=== PATIENT | male | born 1980 ===

== ENCOUNTER 2023-03-25 02:22 | Day surgery (SDC) | payer OTHER ==
[2023-03-25 15:24] VITALS: BP 154/90
[2023-03-25] MEDS ORDERED: BACL10 PO (16:48)
[2023-03-25] MEDS ORDERED: BISA10S PR (16:48)
[2023-03-25] MEDS ORDERED: Norco 5-325 Ta1 EACH PO (16:49)
[2023-03-25] MEDS ORDERED: FAMO20 PO (16:49)
[2023-03-25] MEDS ORDERED: DULCOLAX400 MG/5 M PO (16:50)
[2023-03-25] MEDS ORDERED: NIFE90ER PO (16:50)
[2023-03-25] MEDS ORDERED: OXYB5 PO (16:51)
[2023-03-25] MEDS ORDERED: SENNA LAXATIVE8.6 MG PO (16:52)
[2023-03-25] MEDS ORDERED: TEMA15 PO (16:53)
== END 2023-03-25 16:18 | disposition home or self-care (01) ==
LOC: ATC 02:22
DX: G82.54 Quadriplegia, C5-C7 incomplete (principal); N31.2 Flaccid neuropathic bladder, not elsewhere classified; K21.9 Gastro-esophageal reflux disease without esophagitis; G47.00 Insomnia, unspecified; Z88.1 Allergy status to other antibiotic agents; Z88.2 Allergy status to sulfonamides; Z87.891 Personal history of nicotine dependence; Z91.040 Latex allergy status; Z93.3 Colostomy status
CPT/HCPCS: 99214; C1751

== ENCOUNTER 2023-03-31 13:27 | Inpatient (IN) | payer OTHER ==
[~2023-03-31] VITALS: Ht 190.5 cm; Wt 81.1 kg
[~2023-03-31 13:27] MED LIST: BACL10 PO; BISA10S PR; DULCOLAX400 MG/5 M PO; FAMO20 PO; NIFE90ER PO; Norco 5-325 Ta1 EACH PO; OXYB5 PO; SENNA LAXATIVE8.6 MG PO; TEMA15 PO
[2023-03-31 14:51] LABS: BASOPHILS ABSOLUTE AUTO 0.07 K/mm3 (0.00-0.23); BASOPHILS PERCENT AUTO 1 % (0-2); EOSINOPHILS ABSOLUTE AUTO 0.04 K/mm3 (0.00-0.68); EOSINOPHILS PERCENT AUTO 0 % (0-6); Hematocrit 45.5 % (37.0-53.0); Hemoglobin 14.9 g/dL (13.5-17.5); IMMATURE GRAN ABSOLUTE AUTO 0.04 K/mm3 (0.00-0.10); IMMATURE GRAN PERCENT AUTO 0 % (0-1); LYMPHOCYTES ABSOLUTE AUTO 0.41 K/mm3 (0.84-5.20); LYMPHOCYTES PERCENT AUTO 3 % (21-46); MONOCYTES ABSOLUTE AUTO 0.54 K/mm3 (0.16-1.47); MONOCYTES PERCENT AUTO 5 % (4-13); Mean Corpuscular HGB 26.9 pg (26.0-34.0); Mean Corpuscular HGB Conc 32.7 g/dL (31.5-36.5); Mean Corpuscular Volume 82 fL (80-100); Mean Platelet Volume 9.5 fL (9.1-12.4); NEUTROPHILS ABSOLUTE AUTO 10.98 K/mm3 (1.96-9.15); NEUTROPHILS PERCENT AUTO 91 % (41-73); Platelet Count 272 K/mm3 (150-400); RDW Coefficient Variation 15.8 % (11.7-14.2); RDW Standard Deviation 47.2 fL (35.1-46.3); Red Blood Cell Count 5.53 M/mm3 (4.30-5.90); White Blood Cell Count 12.08 K/mm3 (4.00-11.30)
[2023-03-31 15:07] LABS: Albumin, Blood 3.5 g/dL (3.4-5.0); Albumin/Globulin Ratio 0.7 (0.8-1.8); Bilirubin, Total 0.5 mg/dL (0.1-1.0); Bun/Creatinine Ratio 39.2 (12.0-20.0); Calcium, Blood 8.7 mg/dL (8.5-10.1); Creatinine, Blood 0.46 mg/dL (0.60-1.20); Globulin, Blood 5.1 g/dL (2.2-4.0); Potassium, Blood 4.3 mmol/L (3.5-5.5); Total Protein, Blood 8.6 g/dL (6.4-8.2)
[2023-03-31 16:26] LABS: Source, Urine Foley catheter
[2023-03-31 16:31] LABS: Appearance, Urine Bloody (Clear); Bilirubin, Urine Neg (Neg); Blood, Urine 5+ (Neg); Color, Urine Red (P-Yellow); Glucose Qualitative, Urine Neg (Neg); Ketones, Urine Neg (Neg); Leukocyte Esterase, Urine 3+ (Neg); Nitrite, Urine Pos (Neg); Protein, Urine 3+ (Neg); Urobilinogen, Urine NORM (Normal)
[2023-03-31 16:53] LABS: Bacteria Many /hpf; Red Blood Cells, Urine TNTC /hpf (0-2); Squamous Epithelial Cells Not Seen /hpf (Few); White Blood Cells, Urine TNTC /hpf (0-5)
[2023-03-31 17:50] LABS: Influenza A, PCR NEGATIVE (NEGATIVE); Influenza B, PCR NEGATIVE (NEGATIVE); Resp Syncytial Virus, PCR NEGATIVE (NEGATIVE); SARS-Cov-2 (COVID-19) PCR, MMC NEGATIVE (NEGATIVE)
[2023-03-31] MEDS ORDERED: PERIDEX15 ML PO (20:52)
[2023-03-31] MEDS ORDERED: Acetaminophen650 M1 PO (20:55)
[2023-03-31 21:35] VITALS: BP 129/78
--- NOTE | 2023-04-01 02:12 | NUR ---
REPORT RECEIVED FROM ER VERIFIED PT A/O X4 VERY PLEASENT, TEMP ELEVATED 101.2, COOLING BLANKET AT BEDSIDE BUT NOT ON BECAUSE SEEMS LIKE FEVER GOING TO BREAK. ADMISSION DONE, PICS TAKEN TO SCROTUM AREA WITH LARGE PRESSURE ULCER AND COVERED WITH MEPLIX. SUPERPUBIC CATH CLAMPED AND LEAKING, VILA DRAINING YELLOW TO RED BLOODY URINE. COLOSTOMY INTACT. BAG HAS NO CLEAR WINDOW SO CANT SEE CONDITION OF OSTOMY, PT STATES ITS FINE. 2200 FEVER BROKE 99.8 PT HUNGRY AND REQUESTING FOOD, ACACIA VERY WELL IS OUT GOING AND OPTIMISTIC EVEN WITH LONG STANDING LALO ISSUES AND POOR PROGNOSIS. BOTH IVS WORKING AND WNL.
[2023-04-01 03:43] VITALS: BP 150/96
[2023-04-01 05:19] LABS: BASOPHILS ABSOLUTE AUTO 0.04 K/mm3 (0.00-0.23); BASOPHILS PERCENT AUTO 0 % (0-2); EOSINOPHILS ABSOLUTE AUTO 0.08 K/mm3 (0.00-0.68); EOSINOPHILS PERCENT AUTO 1 % (0-6); Hematocrit 42.3 % (37.0-53.0); Hemoglobin 13.6 g/dL (13.5-17.5); IMMATURE GRAN ABSOLUTE AUTO 0.05 K/mm3 (0.00-0.10); IMMATURE GRAN PERCENT AUTO 1 % (0-1); LYMPHOCYTES ABSOLUTE AUTO 0.29 K/mm3 (0.84-5.20); LYMPHOCYTES PERCENT AUTO 3 % (21-46); MONOCYTES PERCENT AUTO 5 % (4-13); Mean Corpuscular HGB Conc 32.2 g/dL (31.5-36.5); Mean Corpuscular Volume 84 fL (80-100); Mean Platelet Volume 9.8 fL (9.1-12.4); NEUTROPHILS ABSOLUTE AUTO 9.42 K/mm3 (1.96-9.15); NEUTROPHILS PERCENT AUTO 91 % (41-73); Platelet Count 223 K/mm3 (150-400); RDW Coefficient Variation 15.9 % (11.7-14.2); RDW Standard Deviation 48.5 fL (35.1-46.3); Red Blood Cell Count 5.04 M/mm3 (4.30-5.90); White Blood Cell Count 10.38 K/mm3 (4.00-11.30)
[2023-04-01 06:25] LABS: Albumin, Blood 2.9 g/dL (3.4-5.0); Albumin/Globulin Ratio 0.7 (0.8-1.8); Bilirubin, Total 0.4 mg/dL (0.1-1.0); Bun/Creatinine Ratio 27.4 (12.0-20.0); Calcium, Blood 8.2 mg/dL (8.5-10.1); Creatinine, Blood 0.69 mg/dL (0.60-1.20); Globulin, Blood 4.4 g/dL (2.2-4.0); Potassium, Blood 3.8 mmol/L (3.5-5.5); Total Protein, Blood 7.3 g/dL (6.4-8.2)
[2023-04-01 07:59] VITALS: BP 125/69
[2023-04-01 15:31] VITALS: BP 165/97
[2023-04-01 15:35] LABS: Vancomycin, Trough 19.5 ug/mL (5.0-10.0)
--- NOTE | 2023-04-01 17:53 | NUR ---
SHIFT SUMMARY PT A&OX4 AND ANSWERS QUESTIONS APPROPRIATELY. PT HAS COLOSTOMY IN PLACE BUT HAS HAD NO SIGNIFICANT OUTPUT DURING DAY SHIFT. INDWELLING CATHETER IN PLACE AND DRAINING APPROPRIATELY. PT URINE APPEARS MORE BROWN/YELLOW THAN AT START OF SHIFT WHERE IT APPEARED MAROON. PT VERBALIZES PAIN ON HIS COCCYX, PT TURNED Q2 AND MEDICATED PER EMAR. BLOOD CULTURES AWAITING RESULTS. VSS. NO ACUTE EVENTS DURING SHIFT. PT MOVED FROM HOSPITAL BED INTO AIR MATTRESS TO REDUCE SKIN BREAKDOWN AND IMPROVE PT SATISFACTION. PT LEFT IN A POSITION OF SAFETY WITH FALL PRECAUTIONS IN PLACE AND CALL LIGHT WITHIN REACH.
[2023-04-01 19:20] VITALS: BP 136/83
[2023-04-02 02:54] VITALS: BP 119/74
--- NOTE | 2023-04-02 04:25 | NUR ---
REPORT RECEIVED VERIFIED. PT A/O IN BETTER SPIRITS THEN FOLLOWING DAY. NO REAL CHANGE IN CONDITION OTHER THEN FEVER UNDER CONTROL NOW. SUPERPUBIC NO LONGER LEAKING AFTER VILA WAS REPOSITIONED NIGHT BEFORE. PT TURNED Q2 HOURS AND PAIN CONTROLLED PER JUN. URING IN VILA LOOKING A LOT LESS BLOODY. I WILL CONT TO MONITOR.
[2023-04-02 05:56] LABS: BASOPHILS ABSOLUTE AUTO 0.05 K/mm3 (0.00-0.23); BASOPHILS PERCENT AUTO 1 % (0-2); EOSINOPHILS ABSOLUTE AUTO 0.53 K/mm3 (0.00-0.68); EOSINOPHILS PERCENT AUTO 9 % (0-6); Hematocrit 41.1 % (37.0-53.0); IMMATURE GRAN ABSOLUTE AUTO 0.03 K/mm3 (0.00-0.10); IMMATURE GRAN PERCENT AUTO 1 % (0-1); LYMPHOCYTES ABSOLUTE AUTO 0.74 K/mm3 (0.84-5.20); LYMPHOCYTES PERCENT AUTO 12 % (21-46); MONOCYTES ABSOLUTE AUTO 0.61 K/mm3 (0.16-1.47); MONOCYTES PERCENT AUTO 10 % (4-13); Mean Corpuscular HGB 26.8 pg (26.0-34.0); Mean Corpuscular HGB Conc 31.6 g/dL (31.5-36.5); Mean Corpuscular Volume 85 fL (80-100); Mean Platelet Volume 9.6 fL (9.1-12.4); NEUTROPHILS ABSOLUTE AUTO 4.23 K/mm3 (1.96-9.15); NEUTROPHILS PERCENT AUTO 68 % (41-73); Platelet Count 192 K/mm3 (150-400); RDW Coefficient Variation 15.9 % (11.7-14.2); RDW Standard Deviation 49.1 fL (35.1-46.3); Red Blood Cell Count 4.85 M/mm3 (4.30-5.90); White Blood Cell Count 6.19 K/mm3 (4.00-11.30)
[2023-04-02 06:43] LABS: Albumin, Blood 2.8 g/dL (3.4-5.0); Anion Gap 5 mmol/L (6-16); Blood Urea Nitrogen 15 mg/dL (8-24); Bun/Creatinine Ratio 26.3 (12.0-20.0); CO2, Blood 28 mmol/L (21-32); Calcium, Blood 8.4 mg/dL (8.5-10.1); Chloride, Blood 106 mmol/L (98-108); Creatinine, Blood 0.57 mg/dL (0.60-1.20); Glomerular Filtration Rate 125 (60-); Glucose, Blood 132 mg/dL (70-99); Phosphorus, Blood 2.9 mg/dL (2.5-4.9); Potassium, Blood 3.4 mmol/L (3.5-5.5); Sodium, Blood 139 mmol/L (136-145)
[2023-04-02 08:06] VITALS: BP 157/90
[2023-04-02 12:10] LABS: SARS-Cov-2 (COVID-19) PCR, MMC NEGATIVE (NEGATIVE)
[2023-04-02 15:21] VITALS: BP 147/83
--- NOTE | 2023-04-02 16:54 | NUR ---
DAYSHIFT SUMMARY Patient alert & oriented X4. IV ABX administred, awaiting BC results for DC. If BC come back negative patient will DC back to SNF. Patient repositioned Q2H. Hydrocodone administred for pain, PRN effective. Tele in place, no cardiac events this shift. COVID test for discharge done, negative result. Will continue plan of care.
[2023-04-02 19:33] VITALS: BP 119/90
[2023-04-03 02:46] VITALS: BP 134/84
--- NOTE | 2023-04-03 04:58 | NUR ---
NOC SHIFT SUMMARY: PT ALERT AND ORIENTED X4. PT ABLE TO MAKE NEEDS KNOWN. TURN EVERY 2 HOURS. NORCO GIVEN AT BEDTIME. DRESSING REPLACED TO BUTTOCK AREA. BED IN LOW POSITION. CALL LIGHT WITHIN REACH.
[2023-04-03 07:02] LABS: BASOPHILS ABSOLUTE AUTO 0.04 K/mm3 (0.00-0.23); BASOPHILS PERCENT AUTO 1 % (0-2); EOSINOPHILS ABSOLUTE AUTO 0.47 K/mm3 (0.00-0.68); EOSINOPHILS PERCENT AUTO 8 % (0-6); Hematocrit 41.2 % (37.0-53.0); IMMATURE GRAN ABSOLUTE AUTO 0.01 K/mm3 (0.00-0.10); IMMATURE GRAN PERCENT AUTO 0 % (0-1); LYMPHOCYTES PERCENT AUTO 14 % (21-46); MONOCYTES PERCENT AUTO 11 % (4-13); Mean Corpuscular HGB 26.5 pg (26.0-34.0); Mean Corpuscular HGB Conc 31.6 g/dL (31.5-36.5); Mean Corpuscular Volume 84 fL (80-100); Mean Platelet Volume 10.3 fL (9.1-12.4); NEUTROPHILS PERCENT AUTO 66 % (41-73); Platelet Count 219 K/mm3 (150-400); RDW Coefficient Variation 15.9 % (11.7-14.2); RDW Standard Deviation 48.8 fL (35.1-46.3); White Blood Cell Count 5.62 K/mm3 (4.00-11.30)
[2023-04-03 07:18] LABS: Bun/Creatinine Ratio 42.7 (12.0-20.0); Calcium, Blood 8.6 mg/dL (8.5-10.1); Creatinine, Blood 0.4 mg/dL (0.60-1.20); Potassium, Blood 3.7 mmol/L (3.5-5.5)
[2023-04-03 08:15] VITALS: BP 129/85
[2023-04-03] MEDS ORDERED: CEFP200 PO (11:35)
[2023-04-03] MEDS ORDERED: LACT PO (11:36)
--- NOTE | 2023-04-03 15:21 | NUR ---
PT RESTING QUIETLY, AWAKE, DURING SHIFT REPORT. PT IS QUADRAPLEGIC, ON AIR BED FOR WOUND PREVENTION AND HEALING. PER REPORT, WOUND TO COCCYX WITH DRSG CHANGED PRIOR TO START OF SHIFT AND REMAINS C/D/I. PT REPOSITIONED Q2 HR WITH PILLOWS TO KEEP OFF BUTTOCKS. PT IS A&O, AND WILL CALL FOR REPOSITIONING WELL. PT WITH COLOSTOMY, SUPRA PUBIC CATH, AND VILA CATH. ADMITTED FOR SEPSIS UTI, RECEIVING ABX. PT TO RETURN TO [facility] THIS AFTERNOON. SHANK FAKER ARRANGING [place]. UPDATE GIVEN TO [facility] AT 1510. PT IS A&O, AND ABLE TO MAKE NEEDS KNOWN. CALL LT IN REACH.
== END 2023-04-03 16:44 | DRG 698 ==
LOC: ER 13:27 → MEDS 18:19
PROVIDERS: Hospitalist; Student in an Organized Health Care Education/Training Program; ADMIT Internal Medicine
DX: T83.510A Infection and inflammatory reaction due to cystostomy catheter, initial encounter (principal); A41.2 Sepsis due to unspecified staphylococcus; N39.0 Urinary tract infection, site not specified; R31.0 Gross hematuria; G83.9 Paralytic syndrome, unspecified; N31.9 Neuromuscular dysfunction of bladder, unspecified; N20.0 Calculus of kidney; G47.00 Insomnia, unspecified; I10 Essential (primary) hypertension; B96.4 Proteus (mirabilis) (morganii) as the cause of diseases classified elsewhere; L89.152 Pressure ulcer of sacral region, stage 2; K21.9 Gastro-esophageal reflux disease without esophagitis; F12.90 Cannabis use, unspecified, uncomplicated; C67.9 Malignant neoplasm of bladder, unspecified; Z88.2 Allergy status to sulfonamides; Z91.040 Latex allergy status; Z88.8 Allergy status to other drugs, medicaments and biological substances; Z79.891 Long term (current) use of opiate analgesic; Z79.899 Other long term (current) drug therapy; Z87.81 Personal history of (healed) traumatic fracture; Z89.611 Acquired absence of right leg above knee; Y84.6 Urinary catheterization as the cause of abnormal reaction of the patient, or of later complication, without mention of misadventure at the time of the procedure; Z86.19 Personal history of other infectious and parasitic diseases; Z90.49 Acquired absence of other specified parts of digestive tract; Z93.1 Gastrostomy status; Z87.891 Personal history of nicotine dependence; Z93.3 Colostomy status
CPT/HCPCS: 0241U; 36415; 72193; 80048; 80053; 80069; 80202; 81001; 83605; 85025; 87040; 87077; 87086; 87186; 93005; 93010; 96361; 96365; 96368; 99285-25; A9270; J0692; J0696; J1650; J3370; J7030; J7050; Q9967; U0002

== ENCOUNTER 2023-04-16 03:09 | Day surgery (SDC) | payer OTHER ==
[~2023-04-16 03:09] MED LIST changes: +Acetaminophen650 M1 PO; +CEFP200 PO; +LACT PO; +PERIDEX15 ML PO
== END 2023-04-16 23:43 | disposition home or self-care (01) ==
LOC: WOUND 03:09
DX: S31.119D Laceration without foreign body of abdominal wall, unspecified quadrant without penetration into peritoneal cavity, subsequent encounter (principal); G82.20 Paraplegia, unspecified; L89.892 Pressure ulcer of other site, stage 2
CPT/HCPCS: G0463

== ENCOUNTER 2023-04-28 02:19 | Day surgery (SDC) | payer OTHER | END 2023-04-28 22:37 | disposition home or self-care (01) | LOC: WOUND 02:19 | DX: S31.119D Laceration without foreign body of abdominal wall, unspecified quadrant without penetration into peritoneal cavity, subsequent encounter (principal); L89.892 Pressure ulcer of other site, stage 2; G82.20 Paraplegia, unspecified; X58.XXXD Exposure to other specified factors, subsequent encounter | CPT/HCPCS: G0463 ==

== ENCOUNTER 2023-05-10 03:38 | Day surgery (SDC) | payer OTHER | END 2023-05-10 22:55 | disposition home or self-care (01) | LOC: WOUND 03:38 | DX: S31.501D Unspecified open wound of unspecified external genital organs, male, subsequent encounter (principal); X58.XXXD Exposure to other specified factors, subsequent encounter; L89.892 Pressure ulcer of other site, stage 2; G82.20 Paraplegia, unspecified | CPT/HCPCS: G0463 ==

== ENCOUNTER 2023-05-17 03:35 | Day surgery (SDC) | payer OTHER | END 2023-05-17 22:44 | disposition home or self-care (01) | LOC: WOUND 03:35 | DX: S31.119D Laceration without foreign body of abdominal wall, unspecified quadrant without penetration into peritoneal cavity, subsequent encounter (principal); G82.20 Paraplegia, unspecified; L89.892 Pressure ulcer of other site, stage 2; X58.XXXD Exposure to other specified factors, subsequent encounter | CPT/HCPCS: G0463 ==

== ENCOUNTER 2023-05-24 03:09 | Day surgery (SDC) | payer OTHER | END 2023-05-24 23:30 | disposition home or self-care (01) | LOC: WOUND 03:09 | DX: S31.119D Laceration without foreign body of abdominal wall, unspecified quadrant without penetration into peritoneal cavity, subsequent encounter (principal); G82.20 Paraplegia, unspecified; L89.892 Pressure ulcer of other site, stage 2; X58.XXXD Exposure to other specified factors, subsequent encounter | CPT/HCPCS: G0463 ==

== ENCOUNTER 2023-05-31 02:19 | Day surgery (SDC) | payer OTHER | END 2023-05-31 23:01 | disposition home or self-care (01) | LOC: WOUND 02:19 | DX: S31.501D Unspecified open wound of unspecified external genital organs, male, subsequent encounter (principal); G82.20 Paraplegia, unspecified; L89.892 Pressure ulcer of other site, stage 2 | CPT/HCPCS: A9270; G0463 ==

== ENCOUNTER 2023-06-07 00:24 | Day surgery (SDC) | payer OTHER | END 2023-06-07 23:41 | disposition home or self-care (01) | LOC: WOUND | DX: S31.119D Laceration without foreign body of abdominal wall, unspecified quadrant without penetration into peritoneal cavity, subsequent encounter (principal); B36.8 Other specified superficial mycoses; S31.501D Unspecified open wound of unspecified external genital organs, male, subsequent encounter; G82.20 Paraplegia, unspecified; L89.892 Pressure ulcer of other site, stage 2; X58.XXXD Exposure to other specified factors, subsequent encounter | CPT/HCPCS: G0463 ==

== ENCOUNTER 2023-06-14 08:00 | Day surgery (SDC) | payer OTHER ==
[2023-06-14] MEDS ORDERED: Miconazole Nitrate 2% 85 GM PWD ONE (14:36)
[2023-06-14] MEDS ORDERED: Miconazole Nitrate 28 GM CREAM..G. TOP ONE (14:38)
== END 2023-06-14 22:37 | disposition home or self-care (01) ==
LOC: WOUND 08:00
DX: S31.501D Unspecified open wound of unspecified external genital organs, male, subsequent encounter (principal); S31.30XD Unspecified open wound of scrotum and testes, subsequent encounter; X58.XXXD Exposure to other specified factors, subsequent encounter; G82.20 Paraplegia, unspecified; L89.892 Pressure ulcer of other site, stage 2
CPT/HCPCS: A9270; G0463

== ENCOUNTER 2023-06-21 08:00 | Day surgery (SDC) | payer OTHER ==
[2023-06-21] MEDS ORDERED: Miconazole Nitrate 28 GM CREAM..G. TOP ONE (13:51)
== END 2023-06-22 22:34 | disposition home or self-care (01) ==
LOC: WOUND 08:00
DX: S31.119D Laceration without foreign body of abdominal wall, unspecified quadrant without penetration into peritoneal cavity, subsequent encounter (principal); G82.20 Paraplegia, unspecified; L89.892 Pressure ulcer of other site, stage 2; X58.XXXD Exposure to other specified factors, subsequent encounter
CPT/HCPCS: A6213; A9270; G0463

== ENCOUNTER 2023-08-23 04:27 | Day surgery (SDC) | payer OTHER ==
[2023-08-23] MEDS ORDERED: Miconazole Nitrate 2% 85 GM PWD ONE (13:57)
[2023-08-23] MEDS ORDERED: Miconazole Nitrate 28 GM CREAM..G. TOP ONE (14:43)
== END 2023-08-23 22:52 | disposition home or self-care (01) ==
LOC: WOUND 04:27
DX: S31.119D Laceration without foreign body of abdominal wall, unspecified quadrant without penetration into peritoneal cavity, subsequent encounter (principal); S31.501D Unspecified open wound of unspecified external genital organs, male, subsequent encounter; G82.20 Paraplegia, unspecified; L89.892 Pressure ulcer of other site, stage 2; X58.XXXD Exposure to other specified factors, subsequent encounter
CPT/HCPCS: A6213; A9270; G0463

== ENCOUNTER 2023-09-06 04:18 | Day surgery (SDC) | payer OTHER | END 2023-09-06 22:45 | disposition home or self-care (01) | LOC: WOUND 04:18 | DX: S31.119D Laceration without foreign body of abdominal wall, unspecified quadrant without penetration into peritoneal cavity, subsequent encounter (principal); S31.30XD Unspecified open wound of scrotum and testes, subsequent encounter; X58.XXXD Exposure to other specified factors, subsequent encounter; L89.892 Pressure ulcer of other site, stage 2; G82.20 Paraplegia, unspecified ==

== ENCOUNTER 2023-10-25 02:44 | Day surgery (SDC) | payer OTHER ==
[2023-10-25] MEDS ORDERED: Miconazole Nitrate 2% 85 GM PWD ONE (14:20)
== END 2023-10-25 23:15 | disposition home or self-care (01) ==
LOC: WOUND 02:44
DX: S31.20XD Unspecified open wound of penis, subsequent encounter (principal); S31.30XD Unspecified open wound of scrotum and testes, subsequent encounter; L89.892 Pressure ulcer of other site, stage 2; G82.20 Paraplegia, unspecified; X58.XXXD Exposure to other specified factors, subsequent encounter
CPT/HCPCS: A6213; A9270; G0463

== ENCOUNTER 2023-11-01 02:08 | Day surgery (SDC) | payer OTHER ==
[2023-11-01] MEDS ORDERED: Miconazole Nitrate 2% 85 GM PWD ONE (13:55)
== END 2023-11-01 04:20 | disposition home or self-care (01) ==
LOC: WOUND 02:08
DX: S31.501D Unspecified open wound of unspecified external genital organs, male, subsequent encounter (principal); S31.30XD Unspecified open wound of scrotum and testes, subsequent encounter; G82.20 Paraplegia, unspecified; L89.892 Pressure ulcer of other site, stage 2; X58.XXXD Exposure to other specified factors, subsequent encounter
CPT/HCPCS: A6213; A9270; G0463

== ENCOUNTER 2023-11-11 02:33 | Day surgery (SDC) | payer OTHER | END 2023-11-11 22:49 | disposition home or self-care (01) | LOC: WOUND 02:33 | DX: S31.30XD Unspecified open wound of scrotum and testes, subsequent encounter (principal); S31.119D Laceration without foreign body of abdominal wall, unspecified quadrant without penetration into peritoneal cavity, subsequent encounter; G82.20 Paraplegia, unspecified; L89.892 Pressure ulcer of other site, stage 2; X58.XXXD Exposure to other specified factors, subsequent encounter | CPT/HCPCS: A6213; G0463 ==

== ENCOUNTER 2024-01-03 02:01 | Day surgery (SDC) | payer OTHER ==
[2024-01-03] MEDS ORDERED: Miconazole Nitrate 2% 85 GM PWD ONE (14:23)
== END 2024-01-03 23:00 | disposition home or self-care (01) ==
LOC: WOUND 02:01
DX: L89.892 Pressure ulcer of other site, stage 2 (principal); S31.30XA Unspecified open wound of scrotum and testes, initial encounter; G82.20 Paraplegia, unspecified; X58.XXXA Exposure to other specified factors, initial encounter
CPT/HCPCS: A6213; A9270; G0463

== ENCOUNTER 2024-01-09 18:06 | Inpatient (IN) | payer OTHER ==
[~2024-01-09] VITALS: Ht 190.5 cm; Wt 87.0 kg
[~2024-01-09 18:06] MED LIST changes: -Norco 5-325 Ta1 EACH PO; +Norco 7.5-3251 EACH PO
[2024-01-09 18:39] LABS: BASOPHILS PERCENT AUTO 1 % (0-2); EOSINOPHILS ABSOLUTE AUTO 0.23 K/mm3 (0.00-0.68); EOSINOPHILS PERCENT AUTO 1 % (0-6); Hematocrit 51.3 % (37.0-53.0); Hemoglobin 16.8 g/dL (13.5-17.5); IMMATURE GRAN ABSOLUTE AUTO 0.07 K/mm3 (0.00-0.10); IMMATURE GRAN PERCENT AUTO 0 % (0-1); LYMPHOCYTES PERCENT AUTO 6 % (21-46); MONOCYTES ABSOLUTE AUTO 1.21 K/mm3 (0.16-1.47); MONOCYTES PERCENT AUTO 7 % (4-13); Mean Corpuscular HGB 27.8 pg (26.0-34.0); Mean Corpuscular HGB Conc 32.7 g/dL (31.5-36.5); Mean Corpuscular Volume 85 fL (80-100); Mean Platelet Volume 9.6 fL (9.1-12.4); NEUTROPHILS ABSOLUTE AUTO 14.77 K/mm3 (1.96-9.15); NEUTROPHILS PERCENT AUTO 85 % (41-73); Platelet Count 291 K/mm3 (150-400); RDW Coefficient Variation 14.9 % (11.7-14.2); RDW Standard Deviation 45.9 fL (35.1-46.3); Red Blood Cell Count 6.05 M/mm3 (4.30-5.90); White Blood Cell Count 17.38 K/mm3 (4.00-11.30)
[2024-01-09] MEDS ORDERED: Acerola C500 MG PO (18:39)
[2024-01-09] MEDS ORDERED: Milk Of Ma400 MG/5 M PO (18:40)
[2024-01-09] MEDS ORDERED: Oxybutynin Chlo15 MG PO (18:41)
[2024-01-09] MEDS ORDERED: ZINC15 PO (18:42)
[2024-01-09] MEDS ORDERED: TEMA7.5 PO (18:42)
[2024-01-09 19:07] LABS: Albumin, Blood 3.6 g/dL (3.4-5.0); Albumin/Globulin Ratio 0.7 (0.8-1.8); Bilirubin, Total 0.7 mg/dL (0.1-1.0); Calcium, Blood 9.3 mg/dL (8.5-10.1); Creatinine, Blood 0.52 mg/dL (0.60-1.20); Globulin, Blood 5.3 g/dL (2.2-4.0); Potassium, Blood 4.2 mmol/L (3.5-5.5); Total Protein, Blood 8.9 g/dL (6.4-8.2)
[2024-01-09] MEDS ORDERED: NS 1,000 ML IV SCH (19:10)
[2024-01-09] MEDS ORDERED: Morphine Sulfate 4 MG/1 ML Injection IV ONE ×2 (19:10→21:10)
[2024-01-09] MEDS ORDERED: Ondansetron HCl 2 MG / ML 2ML Vial IV ONE ×2 (19:15→22:15)
[2024-01-09 19:47] LABS: Source, Urine Suprapubic Cath
[2024-01-09 19:53] LABS: Appearance, Urine Hazy (Clear); Bilirubin, Urine Neg (Neg); Blood, Urine 3+ (Neg); Color, Urine Yellow (P-Yellow); Glucose Qualitative, Urine Neg (Neg); Ketones, Urine Neg (Neg); Leukocyte Esterase, Urine 3+ (Neg); Nitrite, Urine Pos (Neg); Protein, Urine 3+ (Neg); Urobilinogen, Urine NORM (Normal)
[2024-01-09 20:03] LABS: Bacteria Many /hpf; Squamous Epithelial Cells Rare /hpf (Few); White Blood Cells, Urine 50-100 /hpf (0-5)
[2024-01-09 20:04] LABS: Hyaline Casts 0-2 /lpf (0-2); Mucus Light (0-Heavy)
[2024-01-09 20:05] LABS: Triple Phosphate Crystals Mod /hpf
[2024-01-09 20:59] LABS: International Normalized Ratio 1.07; Prothrombin Time Results 11.4 Sec (9.7-11.5)
[2024-01-09 21:22] LABS: Magnesium, Blood 2.2 mg/dL (1.6-2.4); Phosphorus, Blood 3.6 mg/dL (2.5-4.9)
[2024-01-09] MEDS ORDERED: CefTRIAXone Sodium 2,000 MG in NS 100 ML IV ONE (22:10)
[2024-01-09] MEDS ORDERED: OLANZapine 10 MG Vial IM PRN (23:05)
[2024-01-09] MEDS ORDERED: Ondansetron HCl 2 MG / ML 2ML Vial IV PRN (23:05)
[2024-01-09] MEDS ORDERED: Morphine Sulfate 4 MG/1 ML Injection IV PRN (23:05)
[2024-01-10 00:57] VITALS: BP 128/87
[2024-01-10] MEDS ORDERED: NS 1,000 ML IV ONE (01:35)
[2024-01-10] MEDS ORDERED: ZINC50 M3 PO (03:16)
[2024-01-10 04:59] LABS: BASOPHILS ABSOLUTE AUTO 0.03 K/mm3 (0.00-0.23); BASOPHILS PERCENT AUTO 0 % (0-2); EOSINOPHILS ABSOLUTE AUTO 0.16 K/mm3 (0.00-0.68); EOSINOPHILS PERCENT AUTO 2 % (0-6); Hematocrit 46.9 % (37.0-53.0); Hemoglobin 14.9 g/dL (13.5-17.5); IMMATURE GRAN ABSOLUTE AUTO 0.03 K/mm3 (0.00-0.10); IMMATURE GRAN PERCENT AUTO 0 % (0-1); LYMPHOCYTES ABSOLUTE AUTO 1.02 K/mm3 (0.84-5.20); LYMPHOCYTES PERCENT AUTO 12 % (21-46); MONOCYTES ABSOLUTE AUTO 1.32 K/mm3 (0.16-1.47); MONOCYTES PERCENT AUTO 16 % (4-13); Mean Corpuscular HGB 27.4 pg (26.0-34.0); Mean Corpuscular HGB Conc 31.8 g/dL (31.5-36.5); Mean Corpuscular Volume 86 fL (80-100); Mean Platelet Volume 9.8 fL (9.1-12.4); NEUTROPHILS ABSOLUTE AUTO 5.83 K/mm3 (1.96-9.15); NEUTROPHILS PERCENT AUTO 69 % (41-73); Platelet Count 238 K/mm3 (150-400); RDW Coefficient Variation 15.2 % (11.7-14.2); RDW Standard Deviation 47.6 fL (35.1-46.3); Red Blood Cell Count 5.44 M/mm3 (4.30-5.90); White Blood Cell Count 8.39 K/mm3 (4.00-11.30)
[2024-01-10 05:23] LABS: Bun/Creatinine Ratio 35.8 (12.0-20.0); Calcium, Blood 9.1 mg/dL (8.5-10.1); Creatinine, Blood 0.5 mg/dL (0.60-1.20); Potassium, Blood 4.1 mmol/L (3.5-5.5)
[2024-01-10 08:31] VITALS: BP 128/80
[2024-01-10] MEDS ORDERED: Famotidine 10 MG/ML 2ML Vial IV SCH (09:00)
[2024-01-10 14:39] VITALS: BP 126/75
--- NOTE | 2024-01-10 18:08 | NUR ---
SHIFT NOTE: PT A/OX4 ABLE TO USE CALL LIGHT TO MAKE NEEDS KNONW. HIS PAIN HAS BEEN TREATED WITH PRN MORPHINE. NG IS ON LIS WITH >1L OUT. HIS OSTOMY HAS HAD A SMALL AMOUNT OF HARD FORMED STOOL. NIX CONSULTED AND WILL REVISIT TOMORROW. PT IS TO REMAIN NPO WITH THE EXCEPTION OF ICE CHIPS AND WATER. PT REPOSITIONED Q2 BY STAFF. HE IS ON 1L NC TO MAINTAIN SPO2>90%. WILL CONTINUE TO MONITOR AND REPORT TO ONCOMING RN.
[2024-01-10 19:35] VITALS: BP 123/79
[2024-01-10] MEDS ORDERED: NS 250 ML IV PRN (19:50)
[2024-01-10] MEDS ORDERED: CefTRIAXone Sodium 2,000 MG in NS 100 ML IV SCH (21:00)
[2024-01-11 03:08] VITALS: BP 118/73
--- NOTE | 2024-01-11 06:36 | NUR ---
NOC SUMMARY- PT HAS BEEN MOVED TO A AIR BED THIS SHIFT. PT REFUSED TO HAVE HIS CATH CHANGED. PT STATES HE WILL DISCUSS WITH PROVIDER. PT DISCOMFORT MANAGED WELL. PT REPOSITIONED TOLERATED. PT COLOSTOMY IS PRODUCING STOOL. PT NG IS PRODUCING GREEN BILE. PT CATH IS DRAINING TO GRAVITY. NO LEAKING NOTED. PT STARTED SHIFT ON 1 LPM O2 VIA NC. THIS SHIFT O2 WAS INCREASED TO 2LPM DUE TO DESATING WHILE SLEEPING. PT HAS REMAINED >90% SPO2. PT CURRENTLY SLEEPING IN NO DISTRESS. CALL LIGHT IN REACH.
[2024-01-11 07:35] VITALS: BP 144/83
[2024-01-11 08:37] LABS: BASOPHILS ABSOLUTE AUTO 0.04 K/mm3 (0.00-0.23); BASOPHILS PERCENT AUTO 1 % (0-2); EOSINOPHILS ABSOLUTE AUTO 0.34 K/mm3 (0.00-0.68); EOSINOPHILS PERCENT AUTO 6 % (0-6); Hematocrit 43.8 % (37.0-53.0); Hemoglobin 13.6 g/dL (13.5-17.5); IMMATURE GRAN ABSOLUTE AUTO 0.01 K/mm3 (0.00-0.10); IMMATURE GRAN PERCENT AUTO 0 % (0-1); LYMPHOCYTES ABSOLUTE AUTO 0.67 K/mm3 (0.84-5.20); LYMPHOCYTES PERCENT AUTO 11 % (21-46); MONOCYTES ABSOLUTE AUTO 0.89 K/mm3 (0.16-1.47); MONOCYTES PERCENT AUTO 15 % (4-13); Mean Corpuscular HGB 27.6 pg (26.0-34.0); Mean Corpuscular HGB Conc 31.1 g/dL (31.5-36.5); Mean Corpuscular Volume 89 fL (80-100); Mean Platelet Volume 9.2 fL (9.1-12.4); NEUTROPHILS ABSOLUTE AUTO 3.91 K/mm3 (1.96-9.15); NEUTROPHILS PERCENT AUTO 67 % (41-73); Platelet Count 190 K/mm3 (150-400); RDW Coefficient Variation 15.4 % (11.7-14.2); RDW Standard Deviation 50.2 fL (35.1-46.3); Red Blood Cell Count 4.93 M/mm3 (4.30-5.90); White Blood Cell Count 5.86 K/mm3 (4.00-11.30)
[2024-01-11 09:01] LABS: Albumin/Globulin Ratio 0.7 (0.8-1.8); Bilirubin, Total 0.6 mg/dL (0.1-1.0); Bun/Creatinine Ratio 37.5 (12.0-20.0); Calcium, Blood 8.6 mg/dL (8.5-10.1); Creatinine, Blood 0.43 mg/dL (0.60-1.20); Globulin, Blood 4.4 g/dL (2.2-4.0); Potassium, Blood 4.2 mmol/L (3.5-5.5); Total Protein, Blood 7.4 g/dL (6.4-8.2)
--- NOTE | 2024-01-11 10:00 | NUR ---
VERBAL ORDERS RECIEVED VERBAL ORDERS FROM DR. DRAPER REGARDING UNCOLLECTED URINE SAMPLE AND CULTURE. PATIENT REFUSING SUPRAPUBIC CATHETER REPLACEMENT. UNABLE TO COLLECT SPECIMEN, MD AWARE AND GAVE ORDERS TO DISCONTINUE. MD ALSO REQUESTED TO CALL [facility] TO FIND OUT WHEN CATHETER WAS LAST REPLACED. CALLED [facility] AND LEFT MESSAGE WITH THE CHARGE NURSE TO RETURN CALL. ALSO CALLED LAB TO REQUEST IF URINE CULTURE COULD BE OBTAINED FROM SPECIMEN COLLECTED IN THE EMERGENCY ROOM. REQUEST DENIED DUE TO SPCIMEN BEING 2 DAYS OLD.
[2024-01-11] MEDS ORDERED: D5W-LR 1,000 ML IV ONE (11:30)
[2024-01-11 15:50] VITALS: BP 136/90
[2024-01-11 19:22] VITALS: BP 131/84
--- NOTE | 2024-01-11 19:37 | NUR ---
SHIFT SUMMARY PATIENT A/OX4 ABLE TO MAKE NEEDS KNOWN. CONTINUES WITH 2L ACUTE SUPPLEMENTAL OXYGEN USE. NG TUBE REMOVED THIS AFTERNOON POST SMALL BOWEL SERIES. PATIENT COMPLAINING OF HUNGER, REGULAR DIET ORDERED. PATIENT BLOOD GLUCOSE IN 60s THIS AM AND DEXTROSE IV ORDERED PER JUN. MEDICATED WITH PRN MORPHINE PER JUN FOR ABDOMINAL PAIN. POST SMALL BOWEL SERIES PATIENT WITH EXESSIVE AMOUNTS OF OUTPUT FROM COLOSTOMY. COMPLETE APPARATUSE CHANGED AND BAG EMPTIED MULTIPLE TIMES. PATIWNT Q 2 HOUR REPOSITIONED. CONTINUOUS PULSE OX IN PLACE, SPO2 REMAINS WNL ON 2L. PATIENT TOLERATING REGULAR DIET WELL WITH NO COMPLAINTS OF NAUSEA. SUPRAPUBIC CATH IN PLACE, LEAKING THIS AFTERNOON AND ABDOMINAL DRESSING APPLIED. NO OTHER CONCERNS AT THIS TIME. REPORT GIVEN TO NOC SHIFT NURSE.
[2024-01-12] MEDS ORDERED: Simethicone 80 MG Chew PO PRN (01:45)
--- NOTE | 2024-01-12 01:52 | NUR ---
THIS PROFESSIONAL BASS FISHERMAN SPOKE WITH ON-CALL HOSPITALIST . PT HAS SIGNIFICANT DISTENSION ON ABDOMEN, ZOFRAN PRN IV NOT EFFECTIVE FOR NAUSEA. NO OUTPUT ON OSTOMY DURING THIS SHIFT. PT HAS GAS ON OSTOMY BAG. PT CONTINUES TO FEEL VERY UNCOMFORTABLE AND ASKS FOR DECOMPRESSION WITH THE NG TUBE.. PT AGREES AND WISHES TO HAVE NG TUBE ADMINISTERED DUE TO UNCOMFORTABLE EXTREMELY. PT NOT FEELING WELL. MORPHINE NOT EFFECTIVE PRN PAIN MANAGMENT. NEW ORDER SIMETHICONE 1TAB Q6HRS PRN PO CHEWABLE. NEW ORDER INSTERT NG TUBE THE PT REQUESTS AND AGREES TO. NO ADDITIONAL NEW ORDERS. INVESTMENT MANAGER NOTIFIED. CRUZ PINEDA,
--- NOTE | 2024-01-12 03:07 | NUR ---
NG TUBE INSERTED @0235 W/O ANY COMPLAINTS. OUTPUT>850MLS WITHIN 20MINUTES. DARK GREEN IN COLOR, THICK IN CONSISTENCY. PT REPORTS FEELING BETTER @0245. VERIFIED WITH BOTH CHARGE NURSES THAT XRAY NOT NEEDED TO VERIFY PLACEMENT PER PROTOCOL, D/T MEDICATIONS WILL NOT BE INSERTED INTO THE NG TUBE.
--- NOTE | 2024-01-12 04:35 | NUR ---
SHIFT SUMMARY PT IS A&O X4, ABLE TO MAKE HIS NEEDS KNOWN. FEBRILE 100.6 CELCIUS, AROUND 0400. NG TUBE PLACED BY THIS MARKET DEVELOPMENT MANAGER AT 0235, D/T PT C/O NAUSEA, DRY HEAVING, ABDOMINAL PAIN, DISTENDED AND TIGHT ABD W/O OUTPUT ON COLOSTOMY. PER PT REQUEST AND NURSING JUDGMENT NG TUBE PLACED ORDERED. THIS MARKET DEVELOPMENT MANAGER SPOKE WITH BOTH OF THE CHARGE NURSES PRIOR CALLING THE ON-CALL HOSPITALIST DR. ALCALA. W/I 20MINS AFTER INSERTION, IMMEDIATE,>1LITER (DARK GREEN/THICK CONSISTENCY) OUTPUT. PT REPORTS FEELING BETTER OVERALL. MORPHINE PRN ADMINISTERED ORDERED X2 DURING THIS SHIFT. PT REPORTS NOT EFFECTIVE FOR ABDOMINAL PAIN. NO MEDICATIONS THROUGH THE NG TUBE- ONLY DECROMRESSION PER PT REQUEST AND DR'S ORDER. PO SIMETHICONE ALSO NOT EFFECTIVE FOR C/O GAS. COLOSTOMY: NO OURPUT BUT GAS DURING THIS SHIFT. (PER PREVIOUS SHIFT REPORT- PT HAD AROUND 7-10 BAGS EMPRIED DURING DAY SHIFT). SUBRAPUBIC CATHETER DRAINING YELLOW URINE. NO LEAKAGE NOTED. OUTPUT>500MLS DURING THIS SHIFT, DRAINING WELL. NO ACUTE EVENTS DURING THIS SHIFT. RETAKE SOON FOR TEMPRATURE. PT WAS GIVEN ICE BAG AND WET WASHCLOTH. PT HAS NO COMPLAINTS AT THIS TIME. PT APOLOGIZING WHEN REQUESTING FOR CARE. CONTINUING EDUCATE THE PT, AND THE IMPORTANCE OF PAIN MANAGMENT. PT EXPRESSES " I DON'T WANT TO GET MORPHINE BECAUSE I DON'T WANT TO GET HOOKED ON IT." PT SO UNCOMFORTABLE (FACESCALE 9-10/10), REQUESTING MORPHINE ORDERED. ADMINISTERED ORDERED. BED AT THE LOWEST POSITION, CALL LIGHT WITHIN REACH.
[2024-01-12 05:04] VITALS: BP 147/100
[2024-01-12] MEDS ORDERED: Ondansetron HCl 2 MG / ML 2ML Vial IV ONE (05:20)
[2024-01-12] MEDS ORDERED: Morphine Sulfate 4 MG/1 ML Injection IV ONE (05:20)
--- NOTE | 2024-01-12 05:27 | NUR ---
CHEST XRAY PER PROTOCOL ORDERED @05 BY THIS ACTIVE DIRECTORY SPECIALIST, IN ORDER TO VERIFY NG TUBE PLACEMENT. PORTABLE/STAT ORDER. IMAGING NOTIFIED BY THIS ACTIVE DIRECTORY SPECIALIST. ONE TIME ORDER F MORPHINE 4MG RECEIVED. CALLED AND REQUESTED BY BREAK NURSE PARTNER SURESH Cazares RN. PT CONTINUES TO HAVE HIGH DISTENTION, TEMP 100.6 WHEN RECHECKED. PT REPORTS HIGH LEVEL OF PAIN. PREVIOUS ADMINISTRATION OF 2MG WAS NOT EFFECTIVE. WILL ADMINISTER ANALGESIC ORDERED. AWAITING FOR PORTABLE XRAY.
[2024-01-12 06:34] LABS: Hematocrit 48.8 % (37.0-53.0); Hemoglobin 15.2 g/dL (13.5-17.5); Mean Corpuscular HGB 27.4 pg (26.0-34.0); Mean Corpuscular HGB Conc 31.1 g/dL (31.5-36.5); Mean Corpuscular Volume 88 fL (80-100); Mean Platelet Volume 9.6 fL (9.1-12.4); Platelet Count 226 K/mm3 (150-400); RDW Coefficient Variation 14.9 % (11.7-14.2); RDW Standard Deviation 49.1 fL (35.1-46.3); Red Blood Cell Count 5.54 M/mm3 (4.30-5.90); White Blood Cell Count 7.94 K/mm3 (4.00-11.30)
[2024-01-12 06:55] LABS: Bun/Creatinine Ratio 20.8 (12.0-20.0); Calcium, Blood 9.3 mg/dL (8.5-10.1); Creatinine, Blood 0.58 mg/dL (0.60-1.20); Potassium, Blood 3.7 mmol/L (3.5-5.5)
[2024-01-12 07:48] VITALS: BP 151/93
[2024-01-12] MEDS ORDERED: Morphine Sulfate 4 MG/1 ML Injection IV PRN (11:25)
[2024-01-12] MEDS ORDERED: D5W-LR 1,000 ML IV SCH (11:25)
[2024-01-12] MEDS ORDERED: Ketorolac Tromethamine 15mg Vial IV PRN (11:30)
[2024-01-12 16:12] VITALS: BP 144/97
--- NOTE | 2024-01-12 16:22 | NUR ---
SHIFT SUMMARY PT WOKE FOR SHIFT REPORT. NGT TO LIS WITH GREEN STOOL OUTPUT IN TUBING AND SUCTION CONTAINER. DR SANCHES IN TO SEE PT THIS AM. PT WANTING FOOD AND WATER; NPO AGAIN AT THIS TIME. DR BONILLA TO SEE PT AGAIN TODAY. PT VOMITNG GREEN STOOL LIQUID LATE IN AM. DR SANCHES BY THIS AFTERNOON; NGT TO BE ADVANCED ADDITIONAL 8-10cm; DONE AT 1500. CANISTER CHANGED OUT WITH 800cc OUTPUT PRIOR TO ADVANCING NGT. PT MEDICATED FOR C/O PER EMAR. ABD VERY DISTENDED AND FIRM. NO OUTPUT TO OSTOMY TODAY. NEW IV PLACED TO LW; PT TOLERATED WELL. REPOSITIONED THRU OUT SHIFT. PT'S MOTHER AND LATER FAMILY IN TO VISIT. UPDATES GIVEN. CALL LT IN REACH. ABLE TO MAKE NEEDS KNOWN.
[2024-01-12] MEDS ORDERED: CefTRIAXone Sodium 1,000 MG in NS 100 ML IV SCH (21:00)
[2024-01-13] VITALS (14 sets, daily range): BP systolic 103–164; BP diastolic 77–105
--- NOTE | 2024-01-13 03:29 | NUR ---
SHIFT SUMMARY PT CONTINUES NPO, NG TUBE IN PLACE. OUTPUT >1LITER DARK GREENISH/BLACK IN COLOR DURING THIS SHIFT. PT DENIES N/V. PT COMFORTABLE WITH TORADOL 30MG, ADMINISTERED X2 DURING THIS SHIFT, C/O 5/10 ABDOMINAL PAIN. ABDOMEN MODERATELY DISTENDED AND FIRM WHEN PALPATED. @ HS PT'S MOTHER FATIMAH BY THE BEDSIDE, AWAITING FOR DR. BONILLA TO GIVE AN UPDATE/VISIT BY THE BEDSIDE AND COME UP WITH THE PLAN OF CARE/POSSIBLE SURGERY (PT AND MOTHER ASSUMING). PER HER STATEMENT "OK TO CALL AT ANY HRS OF THE NIGHT WELL" SHE WISHES FOR AN UPDATE. NO OUTPUT ON COLOSTOMY DURING THIS SHIFT. FLUID BAG IV INFUSED ORDERED ONE TIME DOSE. IV ABX INFUSED ORDERED. POOR OUTPUT ON SUBRAPUBIC CATH (SEE I&O INTERVENTION.) URINE IS TEA COLOR. NO LEAKING NOTED ON THE CATH SITE DURING THIS SHIFT. [id number] IN BED. @HS, B. O2@1-2L, CONTINUOUS PULSE OX >95%. PT IS ABLE TO MAKE HIS NEEDS KNOWN, APPEARS AGITATED @HS, AND MOTHER AND PT REQUESTING IM OLANZAPINE. ADMINISTERED WITH GOOD EFFECTIVNESS. PT IS APOLOGETIC AFTER HE REQUESTS BASIC CARE (TURNING, PAIN MED ETC) FROM THE STAFF. PER PT'S MOTHER, PT MISSED AN APPOINTMENT IN [place] FOR BLADDER CANCER CHECK. STATING "I DON'T KNOW IF THEY GOT IT ALL OUT." SHE DID NOT ELABORATE. PT'S MOTHER ALSO REPORTS THAT THIS IS A NEW PROVIDER FOR UROLOGY. DID NOT REMEMBER THE DR'S NAME AT THIS TIME. BED AT THE LOWEST POSITION, CALL LIGHT WITHIN REACH. A&O X4, COOPERATIVE WITH CARE. NO ACUTE EVENTS/DISTRESS NOTED/REPORTED DURING THIS SHIFT.
[2024-01-13 06:24] LABS: Hemoglobin 17.7 g/dL (13.5-17.5); Mean Corpuscular HGB 27.7 pg (26.0-34.0); Mean Corpuscular HGB Conc 31.7 g/dL (31.5-36.5); Mean Corpuscular Volume 87 fL (80-100); Mean Platelet Volume 9.4 fL (9.1-12.4); Platelet Count 256 K/mm3 (150-400); RDW Coefficient Variation 15.5 % (11.7-14.2); RDW Standard Deviation 48.6 fL (35.1-46.3); Red Blood Cell Count 6.39 M/mm3 (4.30-5.90); White Blood Cell Count 6.65 K/mm3 (4.00-11.30)
[2024-01-13 06:28] LABS: Hematocrit 55.8 % (37.0-53.0)
[2024-01-13 06:39] LABS: Bun/Creatinine Ratio 12.7 (12.0-20.0); Creatinine, Blood 2.45 mg/dL (0.60-1.20); Potassium, Blood 3.8 mmol/L (3.5-5.5)
[2024-01-13] MEDS ORDERED: Lactated Ringer's 1,000 ML IV SCH ×2 (07:05→09:25)
[2024-01-13] MEDS ORDERED: Lactated Ringer's 1,000 ML IV ONE ×2 (08:00→10:00)
[2024-01-13] MEDS ORDERED: propofoL 20 ML IV ONE (10:08)
[2024-01-13] MEDS ORDERED: Sugammadex Sodium 200 MG/2ML SDV (100 MG/ML) ONE ×2 (10:08→15:29)
[2024-01-13] MEDS ORDERED: FentaNYL Citrate 50 MCG/ML 2 ML Injection ONE ×2 (10:08→14:59)
[2024-01-13] MEDS ORDERED: Rocuronium Bromide 10 MG/ML 5ML Injection IV ONE ×3 (10:09→15:20)
[2024-01-13] MEDS ORDERED: Ondansetron HCl 2 MG / ML 2ML Vial ONE (10:09)
[2024-01-13] MEDS ORDERED: Dexamethasone Sod Phos 10 MG/ML 1ML VIAL ONE (10:09)
--- NOTE | 2024-01-13 12:14 | NUR ---
INTO SDS VIA BED. PT REPORTS 5/10 ABDOMINAL AND "BUTT" PAIN. PT HAS HX-PARAPLEGIA WITH INDWELLING VILA CATH, R QUAD STOMA, AND MEPILEX DRESSING TO COCCYX WOUND. History, Chart, Medications and Allergies reviewed before start of procedure. Patient confirms NPO status and agrees with scheduled surgery.NGT TO LIS WITH BLUE, LIQID DRAINAGE. LUNGS DIMINISHED TO BASES L>R. SATS 88% ON RA. O2 @ 4 LITERS NASAL CANULA PLACED.
--- NOTE | 2024-01-13 12:37 | NUR ---
PT SENT TO PRE OP 1150. PT HAD 2L LR FROM 0800 UNTIL 1030. URINE REMAINS CRESCENCIO, CONCENTRATED. EMPTIED 200ML BEFORE TRAVEL TO OR. CHANGED MEPILEX ON BACKSIDE BEFORE LEAVING. MOM FATIMAH SPOKE WITH DR BONILLA ON THE PHONE THIS AM AND AWARE THAT PT IS BEING TAKEN FOR PROCEDRE.
[2024-01-13] MEDS ORDERED: Bupivacaine 0.5% HCl 5 MG/ML 30MLVIAL ONE (12:41)
[2024-01-13] MEDS ORDERED: Midazolam HCl 1MG / ML 2ML Vial ONE (13:21)
[2024-01-13] MEDS ORDERED: Midazolam HCl 1MG / ML 2ML Vial IV ONE (13:25)
[2024-01-13] MEDS ORDERED: Phenylephrine HCl 100 MCG/ML-NS 10MLSYR (1MG/10ML) ONE (13:48)
[2024-01-13] MEDS ORDERED: Labetalol HCL 5 MG/ML 4ML Injection (Single Dose) ONE (16:12)
[2024-01-13] MEDS ORDERED: NS 1,000 ML IV ONE (16:45)
--- NOTE | 2024-01-13 17:55 | NUR ---
PT ARRIVED BACK FROM SURGERY @1700 VIA HOSPITAL BED. PT ARRIVED BACK ON 3L NC. CONT BIOX ORDER IN PLACE AND PLACED BACK ON PT. PT SATING @99% ON 3L. TITRATED PT DOWN TO 2L MAINTAINING SATS >95%. LAB ARRIVED SHORTLY AFTER ARRIVAL BACK TO ROOM. LINE DRAW FROM COLIN OLIVEIRA COMPLETED. PT NG PLACED ON LOW INTERMITTENT SUCTION. PT CONFUSED AT THIS TIME STATING "I DONT UNDERSTAND MY MENTAL HEALTH" AND "I NEED TO WRITE STUFF DOWN." EXPLAINED TO PT AND PT MOTHER THAT MEDICATION GIVEN IN SURGERY COULD TAKE SEVERAL HOURS TO COMPLETELY DISSIPATE. NATASHA DRAIN IN PLACE. ORDER IN PLACE FOR OXYGEN THERAPY. FLOATED ON PILLOWS AT THIS TIME D/T STAGE 2 PRESSURE ULCER. FLUIDS INFUSING @ 200/HR. CALL LIGHT IN REACH. BED IN LOWEST POSITION.
[2024-01-13 18:36] LABS: Anion Gap 8 mmol/L (3-11); Blood Urea Nitrogen 40 mg/dL (8-24); Bun/Creatinine Ratio 16.5 (12.0-20.0); CO2, Blood 38 mmol/L (21-32); Calcium, Blood 8.3 mg/dL (8.5-10.1); Chloride, Blood 98 mmol/L (98-108); Creatinine, Blood 2.42 mg/dL (0.60-1.20); Glomerular Filtration Rate 33 (60-); Glucose, Blood 130 mg/dL (70-99); Phosphorus, Blood 3.6 mg/dL (2.5-4.9); Potassium, Blood 3.4 mmol/L (3.5-5.5); Sodium, Blood 141 mmol/L (136-145)
[2024-01-13 20:44] LABS: Bun/Creatinine Ratio 18.6 (12.0-20.0); Calcium, Blood 8.6 mg/dL (8.5-10.1); Creatinine, Blood 2.21 mg/dL (0.60-1.20); Potassium, Blood 3.7 mmol/L (3.5-5.5)
--- NOTE | 2024-01-14 00:16 | NUR ---
THIS VOLUNTEER MANAGER CALLED RESIDENT R/T TWO ACTIVE IV FLUID ORDERS FOR THIS PT [id number] POST OP NIGHT#1. THIS VOLUNTEER MANAGER RECEIVED A TELEPHONE ORDER: D/C D5LR INFUSION, AND CONTINUE LR@150MLS/HR. ORDERS ENTERED TO [employer], SEE EMAR. NO ADDITIONAL NEW ORDERS AT THIS TIME.
--- NOTE | 2024-01-14 03:20 | NUR ---
DRESSING CHANGED ON THE AREA OF COCCYX/SACRUM: NO S/SX INFLAMMATION, NO DRAINAGE NOTED, APPROXIMATELY 1-2MM X 1-2 MM.
--- NOTE | 2024-01-14 03:52 | NUR ---
SHIFT [facility] POST OP NIGHT#1. PT IS NPO, SOME ICE CHIPS OFFERED. NG TUBE OUTPUT 1365 MLS DURING THIS SHIFT. DARK GREEN IN COLOR. NO OUTPUT COLOSTOMY. POOR OUTPUT SUBRAPUBIC CATH <500MLS. URINE IS DARK TEA COLOR. NO LEAKAGE NOTED ON SUBRAPUBIC INSERTION SITE DURING THIS SHIFT. MODERATE DISTENTION ON ABDOMEN, HYPOACTIVE BOWEL SOUNDS. NO GAS IN COLOSTOMY. 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 NO S/X INFLAMMATION NOTED, SIZE IS APPROXIMATELY 2X2MM. MEDICATED FOR ABDOMINAL PAIN X1 WITH MORPHINE IV (FACE SCALE.) PT A&O X2-3 DURING THIS SHIFT, IMPROVING. PER PREVIOUS SHIFT REPORT, SLOWLY ORIENTATING BACK TO BASELINE AFTER SURGERY. PRN OLANZEPINE IM ADMINISTERED ORDERED@HS D/T AGITATION. Q6 BG: @HS 133. LR INFUSING ORDERED @150MLS/HR. NATASHA DRAIN INTACT. NO ACUTE EVENTS DURING THIS SHIFT. BED AT THE LOWEST POSITION, CALL LIGHT WITHIN REACH. PT IS ABLE TO MAKE HIS NEEDS KNOWN, AND IS COOPERATIVE WITH CARE.
[2024-01-14 05:38] LABS: BASOPHILS ABSOLUTE AUTO 0.09 K/mm3 (0.00-0.23); BASOPHILS PERCENT AUTO 1 % (0-2); EOSINOPHILS ABSOLUTE AUTO 0.03 K/mm3 (0.00-0.68); EOSINOPHILS PERCENT AUTO 0 % (0-6); Hematocrit 46.7 % (37.0-53.0); Hemoglobin 14.5 g/dL (13.5-17.5); IMMATURE GRAN ABSOLUTE AUTO 0.07 K/mm3 (0.00-0.10); IMMATURE GRAN PERCENT AUTO 1 % (0-1); LYMPHOCYTES ABSOLUTE AUTO 1.03 K/mm3 (0.84-5.20); LYMPHOCYTES PERCENT AUTO 14 % (21-46); MONOCYTES ABSOLUTE AUTO 1.53 K/mm3 (0.16-1.47); MONOCYTES PERCENT AUTO 20 % (4-13); Mean Corpuscular HGB 27.5 pg (26.0-34.0); Mean Corpuscular Volume 88 fL (80-100); Mean Platelet Volume 10.2 fL (9.1-12.4); NEUTROPHILS ABSOLUTE AUTO 4.78 K/mm3 (1.96-9.15); NEUTROPHILS PERCENT AUTO 64 % (41-73); Platelet Count 177 K/mm3 (150-400); RDW Coefficient Variation 15.9 % (11.7-14.2); RDW Standard Deviation 51.7 fL (35.1-46.3); Red Blood Cell Count 5.28 M/mm3 (4.30-5.90); White Blood Cell Count 7.53 K/mm3 (4.00-11.30)
[2024-01-14 06:09] LABS: Magnesium, Blood 1.9 mg/dL (1.6-2.4)
[2024-01-14 06:10] LABS: Bun/Creatinine Ratio 26.3 (12.0-20.0); Calcium, Blood 8.1 mg/dL (8.5-10.1); Creatinine, Blood 1.71 mg/dL (0.60-1.20); Potassium, Blood 3.5 mmol/L (3.5-5.5)
[2024-01-14 07:10] VITALS: BP 149/102
--- NOTE | 2024-01-14 16:48 | NUR ---
SHIFT SUMMARY PT AXO TO SELF, PLACE AND FOLLOWING DIRECTIONS THOUGH HAS DIFFICULTY REMEMBERING AT TIMES, SOFT SPOKEN. MEDICATED FOR PAIN PER EMAR. NG TUBE IN PLACE AND DRAINING DARK BLUE/GREEN. VERY SMALL AMOUNT OF CLEAR YELLOW OUTPUT FROM COLOSTOMY. ATTEMPTED TO WEEN FROM O2 BUT ON RA, PT DESATS TO 85. ON 2L AT THIS TIME, 98%. PT TOLERATING ICE CHIPS. TURNED Q2 AND PRN PER PT REQUEST. BED IN LOW POSITION, CALL LIGHT WITHIN REACH.
[2024-01-14 17:06] VITALS: BP 176/114
--- NOTE | 2024-01-14 18:34 | NUR ---
DR GUPTA NOTIFIED OF AFTERNOON BP OF 178/114 AT 1833 ON 12/14/23. DR GUPTA TO INPUT NEW ORDERS.
[2024-01-14] MEDS ORDERED: HydrALAZINE HCl 20 MG / ML 1ML Vial IV PRN (18:40)
[2024-01-15 03:16] VITALS: BP 170/114
[2024-01-15 04:41] LABS: Hematocrit 52.7 % (37.0-53.0); Hemoglobin 16.3 g/dL (13.5-17.5); Mean Corpuscular HGB 27.1 pg (26.0-34.0); Mean Corpuscular HGB Conc 30.9 g/dL (31.5-36.5); Mean Corpuscular Volume 88 fL (80-100); Mean Platelet Volume 10.2 fL (9.1-12.4); Platelet Count 284 K/mm3 (150-400); RDW Coefficient Variation 15.9 % (11.7-14.2); RDW Standard Deviation 51.4 fL (35.1-46.3); Red Blood Cell Count 6.02 M/mm3 (4.30-5.90); White Blood Cell Count 13.69 K/mm3 (4.00-11.30)
[2024-01-15 05:08] LABS: Albumin, Blood 2.8 g/dL (3.4-5.0); Anion Gap 15 mmol/L (3-11); Blood Urea Nitrogen 44 mg/dL (8-24); Bun/Creatinine Ratio 48.4 (12.0-20.0); CO2, Blood 37 mmol/L (21-32); Chloride, Blood 91 mmol/L (98-108); Creatinine, Blood 0.91 mg/dL (0.60-1.20); Glomerular Filtration Rate 107 (60-); Glucose, Blood 166 mg/dL (70-99); Phosphorus, Blood 2.8 mg/dL (2.5-4.9); Sodium, Blood 140 mmol/L (136-145)
[2024-01-15 05:12] LABS: BAND PERCENT MAN 24 % (0-8); BASOPHILS PERCENT MAN 0 % (0-2); EOSINOPHILS PERCENT MAN 0 % (0-6); LYMPHOCYTES % ATYPICAL MANUAL 1 % (0-0); LYMPHOCYTES ABSOLUTE MAN 0.54 K/mm3 (0.84-5.20); LYMPHOCYTES PERCENT MAN 3 % (21-46); MONOCYTES ABSOLUTE MAN 1.36 K/mm3 (0.16-1.47); MONOCYTES PERCENT MAN 10 % (4-13); MYELOCYTE ABSOLUTE MAN 0.13 K/mm3 (0.00-0.00); MYELOCYTE PERCENT MAN 1 % (0-0); NEUTROPHILS ABSOLUTE MAN 11.63 K/mm3 (1.96-9.15); SEG NEUTROPHILS PERCENT MAN 61 % (41-73); TOTAL CELLS COUNTED 100
--- NOTE | 2024-01-15 05:32 | NUR ---
SHIFT SUMMARY PATIENT IS ALERT AND ORIENTED TO SELF, PLACE. PATIENT HAS HAD NO ACUTE EVENTS THIS SHIFT. VITAL SIGNS REVIEWED. NG TUBE IN PLACE AND DRAINING BLUE/GREEN LIQUID, 1200ML OUTPUT. PATIENT ON 2L NC SATTING ABOVE 95 PERCENT. PATIENT HAS BEEN TURNED Q2 AND PRN. PATIENT HAS HAD PAIN THIS SHIFT AND MEDICATED PER EMAR. COLOSTOMY HAS HAD MINIMAL OUTPUT. BED IN LOWEST AND LOCKED POSITION. CALL LIGHT IN PLACE. WILL MONITOR UNTIL SHIFT CHANGE.
[2024-01-15 07:20] VITALS: BP 139/99
[2024-01-15] MEDS ORDERED: Potassium Chl 20MEQ/Water100ML 100 ML IV SCH (07:30)
--- NOTE | 2024-01-15 08:46 | NUR ---
STOPPED SUCTION FOR NG TUBE PER NURSE NOTIFY AT 0845
[2024-01-15] MEDS ORDERED: NS 1,000 ML IV ONE (11:40)
--- NOTE | 2024-01-15 11:43 | NUR ---
NG TUBE; FIRST ROUND 900 EMPTIED SECOND ROUND 850 EMPTIED
[2024-01-15] MEDS ORDERED: Piperacillin/Tazobactam Sod 4.5 GM in NS 100 ML IV SCH (13:00)
--- NOTE | 2024-01-15 13:52 | NUR ---
CALL MADE TO DR. BONILLA REGUARDING GLOVE ATTACHED TO AIR VENT TUBING ON THE NG TUBE COLLECTING FLUID. GLOVE BECAME FULL OF FLUID AND NOTIFIED DR. BONILLA. SHE ADVISED TO SWITCH THE GLOVE AND PUSH SOME AIR THROUGH THE TUBE AND KEEP DOING THAT.
--- NOTE | 2024-01-15 15:15 | NUR ---
DURING PATIENT CARE; PATIENT PICKED UP HIS CALL LIGHT AND ASKED IF IT WAS A WHEELCHAIR "DIDN'T THIS USED TO BE A WHEELCHAIR?" RESPONDED TO THE PATIENT "IS YOUR CALL LIGHT A WHEELCHAIR?" HE SAID NO AND THAT HE NEW IT WAS A CALL LIGHT. HE PAUSED AND SAID "OH SHIT" "MY BAD" "I'M SORRY" PATIENT REORIENTED PATIENT'S MOM PRESENT IN ROOM WHEN THIS HAPPENED AND SHE DID NOT EXPRESS ANY CONCERN WITH HIS BEHAVIOR AND SAYS THAT HIS MEMORY IS POOR.
[2024-01-15 16:10] VITALS: BP 137/95
--- NOTE | 2024-01-15 18:34 | NUR ---
SHIFT SUMMARY: PT SITTING UP IN HIS BED, CALL LIGHT WITHIN REACH, HE HAS BEEN EATING ICE CHIPS, SIPPING ON WATER, AND APPLE JUICE. TOLERATING WELL; GOT NAUSEOUS ONCE TODAY. PATIENT'S NG TUBE HAVING LOTS OF OUTPUT; SEE I&O'S. SEE NURSE NOTE ON NG TUBE WHEN NIX CAME BY. GLOVE ON END OF AIR VENT TUBE REPLACE AND HASN'T COLLECTED FLUID. PATIENT USES HIS CALL LIGHT TO MAKE NEEDS KNOWN, NO SIGNS OR SYMPTOMS OF DISTRESS, PLAN OF CARE ONGOING.
[2024-01-15 19:26] VITALS: BP 140/101
[2024-01-16 03:14] VITALS: BP 141/97
--- NOTE | 2024-01-16 04:24 | NUR ---
SHIFT SUMMARY PATIENT IS ALERT AND ORIENTED X2. PATIENT HAS HAD NO ACUTE EVENTS THIS SHIFT. VITAL SIGNS REVIEWED. PATIENT HAS COMPLAINED OF PAIN THIS SHIFT AND MEDICATED PER EMAR. PATIENT HAS HAD NO COMPLAINTS OF SOB, NAUSEA, OR VOMITTING THIS SHIFT. NG TUBE HAS BEEN PRODUCING SIGNIFIGANT OUTPUT. PATIENT HAS BEEN TOLERATING LIQUIDS AND ICE CHIPS THIS SHIFT. PATIENT HAS BEEN TURNED Q2 AND PRN. BED IN LOCKED AND LOWEST POSITION. CALL LIGHT IN PLACE. WILL MONITOR UNTIL SHIFT CHANGE.
[2024-01-16 05:08] LABS: Hemoglobin 16.2 g/dL (13.5-17.5); Mean Corpuscular HGB 27.5 pg (26.0-34.0); Mean Corpuscular HGB Conc 30.6 g/dL (31.5-36.5); Mean Corpuscular Volume 90 fL (80-100); Mean Platelet Volume 10.3 fL (9.1-12.4); Platelet Count 206 K/mm3 (150-400); RDW Coefficient Variation 16.2 % (11.7-14.2); RDW Standard Deviation 52.4 fL (35.1-46.3); Red Blood Cell Count 5.89 M/mm3 (4.30-5.90); White Blood Cell Count 16.51 K/mm3 (4.00-11.30)
[2024-01-16 05:30] LABS: BAND PERCENT MAN 23 % (0-8); BASOPHILS PERCENT MAN 0 % (0-2); EOSINOPHILS ABSOLUTE MAN 0.16 K/mm3 (0.00-0.68); EOSINOPHILS PERCENT MAN 1 % (0-6); LYMPHOCYTES ABSOLUTE MAN 0.99 K/mm3 (0.84-5.20); LYMPHOCYTES PERCENT MAN 6 % (21-46); MONOCYTES ABSOLUTE MAN 2.14 K/mm3 (0.16-1.47); MONOCYTES PERCENT MAN 13 % (4-13); SEG NEUTROPHILS PERCENT MAN 57 % (41-73); TOTAL CELLS COUNTED 100
[2024-01-16 05:41] LABS: Albumin, Blood 2.8 g/dL (3.4-5.0); Albumin/Globulin Ratio 0.5 (0.8-1.8); Bilirubin, Total 0.6 mg/dL (0.1-1.0); Bun/Creatinine Ratio 40.5 (12.0-20.0); Calcium, Blood 9.6 mg/dL (8.5-10.1); Creatinine, Blood 1.26 mg/dL (0.60-1.20); Globulin, Blood 5.6 g/dL (2.2-4.0); Total Protein, Blood 8.4 g/dL (6.4-8.2)
[2024-01-16] MEDS ORDERED: Lactated Ringer's 1,000 ML IV SCH (07:00)
[2024-01-16] MEDS ORDERED: Potassium Chl 20MEQ/Water100ML 100 ML IV SCH ×2 (07:05→18:40)
[2024-01-16 07:51] VITALS: BP 136/99
[2024-01-16 08:47] LABS: Bicarbonate Venous 56.7 mmol/L (24.0-30.0); PCO2 Venous 66.6 mmHg (38-42); pH Blood Venous 7.55 (7.34-7.37)
[2024-01-16] MEDS ORDERED: Heparin Sodium,Porcine 5,000 UNIT/0.5 ML SDV SC SCH (09:00)
[2024-01-16] MEDS ORDERED: Lactated Ringer's 1,000 ML IV ONE (10:20)
[2024-01-16] MEDS ORDERED: Metoclopramide HCl 5MG / ML 2ML Vial IV PRN (15:45)
[2024-01-16 16:40] VITALS: BP 129/87
[2024-01-16 17:42] LABS: Blood Urea Nitrogen 55 mg/dL (8-24); Chloride, Blood 88 mmol/L (98-108); Creatinine, Blood 1.62 mg/dL (0.60-1.20); Glomerular Filtration Rate 53 (60-); Glucose, Blood 114 mg/dL (70-99); Potassium, Blood 3.5 mmol/L (3.5-5.5); Sodium, Blood 143 mmol/L (136-145)
[2024-01-16 17:43] LABS: Anion Gap Unable to Calculate mmol/L (3-11); CO2, Blood >45 mmol/L (21-32)
[2024-01-16] MEDS ORDERED: D5W-1/2NS KCl 20mEq 1,000 ML IV SCH (18:25)
[2024-01-16] MEDS ORDERED: NS 1,000 ML IV ONE (18:25)
--- NOTE | 2024-01-16 18:27 | NUR ---
SHIFT NOTE: PT A/O, HAS TROUBLE FINDING HIS WORDS AND FOLLOWING CONVERSATIONS. SPOKE WITH MD ABOUT CONCERNS OF ACUTE DELIRIUM. HE IS NOT ON TELE, VSS. DENIES CHEST PAIN. HE IS ON 1-2L NC DENIES SOB. PT EDUCATED ON NEED TO CONTINUE TO USE IS. LUNG SOUNDS ARE DIM AND RESPIRATIONS ARE SHALLOW. HE HAS HAD MINIMAL DRAINAGE FROM OSTOMY, NO BM YET. NG TUBE IS SET TO INT SUCTION WITH GREEN TO BROWN OUTPUT. PT HAS BEEN INTAKING WATER AND APPLEJUICE THROUGH OUT THE DAY. HIS SUPERPUBIC CATHETER IS DRAINING TO GRAVITY, SEDIMENT PRESENT. PT HAS BEEN REPOSITIONED BY STAFF Q2 AND WHEN REQUESTED. PT MEDICATED WITH MORPHINE FOR PAIN PER JUN. FLUIDS AND ANTIBIOTICS RUNNING PER JUN. CRITICAL VALUES REPORTED TO MD. WILL CONTINUE TO MONITOR AND REPORT TO ONCOMING RN.
[2024-01-16] MEDS ORDERED: OLANZapine 10 MG Tab PO SCH (21:00)
[2024-01-16] MEDS ORDERED: OLANZapine ODT 5 MG Tab MM SCH (21:00)
[2024-01-17 02:14] VITALS: BP 158/98
--- NOTE | 2024-01-17 05:27 | NUR ---
SHIFT SUMMARY NG TUBE PLACE AND DRAINING DARK BLUE/GREEN, AT LEAST 2200ML DRAINED. ABOUT 650ML OF CLEAR YELLOW OUTPUT FROM CATHETER. PT REPOSITIONED Q2. BED CHANGED AND CATHETER REDRESSED. AT APPROXIMATELY 0100 NURSE ADMINISTERING ZOSYN, PT WOKE UP STATED HE WAS CONFUSED. I ADVISED WHAT I WAS DOING. HE ASKED ME TO STOP AND WANTED TO THINK ABOUT THINGS. ABLE TO RESTART MEDICATION COMPLETELY. SUPER PEUBIC CATHETER APPEARS TO BE LEAKING. ADVISED CHARGE NURSE. WILL PASS ON TO DAY NURSE. APPEARS TO BE ON GOING PROBLEM BED AT LOW POSITION, RAILS TIMES 2, CALL LIGHT WITHIN REACH.
[2024-01-17 07:10] VITALS: BP 137/92
[2024-01-17] MEDS ORDERED: NS 500 ML IV SCH (07:35)
[2024-01-17 08:30] LABS: EOSINOPHILS PERCENT AUTO 1 % (0-6); Hematocrit 51.8 % (37.0-53.0); Hemoglobin 15.6 g/dL (13.5-17.5); IMMATURE GRAN ABSOLUTE AUTO 0.07 K/mm3 (0.00-0.10); IMMATURE GRAN PERCENT AUTO 1 % (0-1); LYMPHOCYTES PERCENT AUTO 8 % (21-46); MONOCYTES ABSOLUTE AUTO 1.33 K/mm3 (0.16-1.47); MONOCYTES PERCENT AUTO 10 % (4-13); Mean Corpuscular HGB 27.3 pg (26.0-34.0); Mean Corpuscular HGB Conc 30.1 g/dL (31.5-36.5); Mean Corpuscular Volume 91 fL (80-100); Mean Platelet Volume 10.4 fL (9.1-12.4); NEUTROPHILS ABSOLUTE AUTO 10.72 K/mm3 (1.96-9.15); NEUTROPHILS PERCENT AUTO 81 % (41-73); Platelet Count 190 K/mm3 (150-400); RDW Coefficient Variation 15.9 % (11.7-14.2); RDW Standard Deviation 53.1 fL (35.1-46.3); Red Blood Cell Count 5.71 M/mm3 (4.30-5.90); White Blood Cell Count 13.27 K/mm3 (4.00-11.30)
[2024-01-17 08:37] LABS: BASOPHILS ABSOLUTE AUTO 0.05 K/mm3 (0.00-0.23); BASOPHILS PERCENT AUTO 0 % (0-2)
[2024-01-17 08:54] LABS: Alanine Aminotransfer (ALT/SGP 20 U/L (12-78); Albumin, Blood 2.5 g/dL (3.4-5.0); Albumin/Globulin Ratio 0.5 (0.8-1.8); Alk Phos 72 U/L (50-136); Aspartate Aminotrans (AST/SGOT 14 U/L (12-37); Bilirubin, Total 0.4 mg/dL (0.1-1.0); Blood Urea Nitrogen 54 mg/dL (8-24); Bun/Creatinine Ratio 30.3 (12.0-20.0); Calcium, Blood 9.1 mg/dL (8.5-10.1); Chloride, Blood 91 mmol/L (98-108); Creatinine, Blood 1.78 mg/dL (0.60-1.20); Globulin, Blood 5.5 g/dL (2.2-4.0); Glomerular Filtration Rate 48 (60-); Glucose, Blood 181 mg/dL (70-99); Potassium, Blood 3.1 mmol/L (3.5-5.5); Sodium, Blood 145 mmol/L (136-145)
[2024-01-17 08:55] LABS: Anion Gap Unable to Calculate mmol/L (3-11)
[2024-01-17 08:56] LABS: CO2, Blood >45 mmol/L (21-32)
[2024-01-17] MEDS ORDERED: Potassium Chl 20MEQ/Water100ML 100 ML IV SCH (11:00)
[2024-01-17] MEDS ORDERED: NS 1,000 ML IV SCH (12:00)
--- NOTE | 2024-01-17 12:15 | NUR ---
CALLED DR BONILLA CELL. RE RESIDUAL AFTER 3 HRS CLAMP. 175 CC. LEFT SUCTION ON LIS. LMTC, NO ANS.
[2024-01-17 15:16] VITALS: BP 122/91
[2024-01-17 16:04] LABS: Blood Urea Nitrogen 56 mg/dL (8-24); Bun/Creatinine Ratio 30.8 (12.0-20.0); Calcium, Blood 9.2 mg/dL (8.5-10.1); Chloride, Blood 94 mmol/L (98-108); Creatinine, Blood 1.82 mg/dL (0.60-1.20); Glomerular Filtration Rate 46 (60-); Glucose, Blood 100 mg/dL (70-99); Potassium, Blood 3.8 mmol/L (3.5-5.5); Sodium, Blood 148 mmol/L (136-145)
[2024-01-17 16:06] LABS: Anion Gap Unable to Calculate mmol/L (3-11)
[2024-01-17 16:15] LABS: CO2, Blood >45 mmol/L (21-32)
--- NOTE | 2024-01-17 17:40 | NUR ---
PT MOSTLY PLEASANT TODAY. ALERT X3. SOFT SPOKEN AND HARD TO UNDERSTAND AT TIMES. NG TUBE PULLED TODAY PER DR BONILLA. DR BONILLA OKAYED GENTLE ICE CHIPS TONITE AND WILL REVIEW HOW HE DOES TOMORROW. ONLY COUPLE TABLESPOONS FLUID IN OSTOMY BAG TODAY. NO GAS NOTED. MOTHER IN TO VISIT TWICE TODAY. NO OTHER NEW CONCERNS NOTED TODAY. BED IN LOW POSITION, VERENA LITE IN REACH, CALLS APPRP
--- NOTE | 2024-01-17 18:46 | NUR ---
PER CQALL TO DR BONILLA. PT OUT-PUT AFTER 3 HRS NO SUCTION, WAS 200 CC. OKAY TO PULL NG TUBE AND GIVE GENTLE ICE CHIPS. DR BONILLA TO RE-EVAL IN AM.
[2024-01-17 19:23] VITALS: BP 124/89
[2024-01-18] VITALS (24 sets, daily range): BP systolic 114–181; BP diastolic 78–102
[2024-01-18 05:08] LABS: BASOPHILS ABSOLUTE AUTO 0.09 K/mm3 (0.00-0.23); BASOPHILS PERCENT AUTO 1 % (0-2); EOSINOPHILS ABSOLUTE AUTO 0.34 K/mm3 (0.00-0.68); EOSINOPHILS PERCENT AUTO 3 % (0-6); Hematocrit 50.5 % (37.0-53.0); IMMATURE GRAN ABSOLUTE AUTO 0.07 K/mm3 (0.00-0.10); IMMATURE GRAN PERCENT AUTO 1 % (0-1); LYMPHOCYTES ABSOLUTE AUTO 1.08 K/mm3 (0.84-5.20); LYMPHOCYTES PERCENT AUTO 9 % (21-46); MONOCYTES ABSOLUTE AUTO 1.59 K/mm3 (0.16-1.47); MONOCYTES PERCENT AUTO 13 % (4-13); Mean Corpuscular HGB 27.5 pg (26.0-34.0); Mean Corpuscular HGB Conc 29.7 g/dL (31.5-36.5); Mean Corpuscular Volume 93 fL (80-100); Mean Platelet Volume 11.1 fL (9.1-12.4); NEUTROPHILS ABSOLUTE AUTO 9.56 K/mm3 (1.96-9.15); NEUTROPHILS PERCENT AUTO 75 % (41-73); Platelet Count 200 K/mm3 (150-400); RDW Coefficient Variation 16.3 % (11.7-14.2); RDW Standard Deviation 55.3 fL (35.1-46.3); Red Blood Cell Count 5.46 M/mm3 (4.30-5.90); White Blood Cell Count 12.73 K/mm3 (4.00-11.30)
[2024-01-18 06:18] LABS: Anion Gap Unable to Calculate mmol/L (3-11); Blood Urea Nitrogen 53 mg/dL (8-24); Bun/Creatinine Ratio 28.2 (12.0-20.0); Chloride, Blood 99 mmol/L (98-108); Creatinine, Blood 1.88 mg/dL (0.60-1.20); Glomerular Filtration Rate 45 (60-); Glucose, Blood 160 mg/dL (70-99); Potassium, Blood 3.5 mmol/L (3.5-5.5); Sodium, Blood 151 mmol/L (136-145)
[2024-01-18 06:20] LABS: CO2, Blood >45 mmol/L (21-32)
[2024-01-18] MEDS ORDERED: Lactated Ringer's 1,000 ML IV SCH (07:55)
--- NOTE | 2024-01-18 07:57 | NUR ---
CALL PLACED TO PATIENT'S MOTHER, SHE HAS BEEN NOTIFIED THAT HE IS GOING TO SURGERY AND THEN PCU/ICU AFTER
[2024-01-18] MEDS ORDERED: Ondansetron HCl 2 MG / ML 2ML Vial ONE (08:01)
[2024-01-18] MEDS ORDERED: Lidocaine HCl 2% 20 ML MDV ONE (08:01)
[2024-01-18] MEDS ORDERED: Phenylephrine HCl 100 MCG/ML-NS 10MLSYR (1MG/10ML) ONE (08:01)
[2024-01-18] MEDS ORDERED: Sugammadex Sodium 200 MG/2ML SDV (100 MG/ML) ONE (08:01)
[2024-01-18] MEDS ORDERED: Rocuronium Bromide 10 MG/ML 5ML Injection IV ONE ×2 (08:01→09:37)
[2024-01-18] MEDS ORDERED: FentaNYL Citrate 50 MCG/ML 2 ML Injection ONE ×2 (08:01→11:20)
[2024-01-18] MEDS ORDERED: Dexamethasone Sod Phos 10 MG/ML 1ML VIAL ONE (08:01)
[2024-01-18] MEDS ORDERED: propofoL 20 ML IV ONE (08:01)
--- NOTE | 2024-01-18 08:13 | NUR ---
SHIFT SUMMARY PT IS A&OX3, CONFUSED AT TIMES AND VERY SOFT SPOKEN. VSS ON 0.5L NC. C/O PAIN IN HIS ABD AND COCCYX 5/10, MEDICATED PER EMAR WITH 2 MG IV MORPHINE. PT REMAINS STRICT NPO. HIS NATASHA DRAIN TO MIDLINE INCISION WAS NOT WORKING. DRESSING WAS SATURATED WITH DRIED DRAINAGE. REMOVED OLD DRESSING AND HIS INCISION WAS OOZING WITH GREEN DRAINAGE. CALLED MD CARRILLO, HE CAME TO BEDSIDE TO OBSERVE INCISION AROUND 0600. AFTERWARDS, THIS RN COVERED WITH CLEAN ABD PAD, WHEN GIVING REPORT TO ONCOMING SHIFT, THIS DRESSING WAS SATURATED. ONCOMING RN CALLED PHYSICIAN.
--- NOTE | 2024-01-18 08:36 | NUR ---
PHYSICIAN CONTACT/TRANSFER TO OR PER NOC REPORT, PT HAD NATASHA TAKEN OFF AT APPROX 0600 DUE TO EXCESSIVE DRAINAGE. AT 0730, GAUZE, EXUDRY, ABD PAD AND PAD UNDER PATIENT WAS SATURATED IN GREEN BILE. DRESSING REMOVED, & GREEN BILE COULD BE VISIBLY SEEN DRIPPING FROM INCISION SITE. DR. GRADY NOTIFIED IMMEDIATELY, SHE CALLED DR. BONILLA. ORDER TO PLACE NGT AND TRANSFER TO PCU OBTAINED. NGT PLACED WITH 500CC OUTPUT IMMEDIATELY. OR STAFF CAME TO TAKE PATIENT, THEN TRANSFER TO HIGHER LEVEL OF CARE AFTERWARDS. PT MOTHER NOTIFIED BY CHARGE, RN.
--- NOTE | 2024-01-18 08:37 | NUR ---
PATIENT IN DAY SURGERY/PRE-OP, MOM AT BEDSIDE. History, Chart, Medications and Allergies reviewed before start of procedure. Patient confirms NPO status and agrees with scheduled surgery.
[2024-01-18] MEDS ORDERED: Midazolam HCl 1MG / ML 2ML Vial IV SCH (08:40)
[2024-01-18] MEDS ORDERED: Dexmedetomidine HCL 200 MCG / 2 ML ONE (08:42)
[2024-01-18] MEDS ORDERED: ePHEDrine Sulfate 50 MG/ML 1ML Injection ONE (08:55)
[2024-01-18] MEDS ORDERED: Lactated Ringer's 1,000 ML IV ONE ×2 (11:10→12:30)
--- NOTE | 2024-01-18 11:56 | NUR ---
REPORT CALLED TO MIRIAM DOMINIQUE IN PCU
[2024-01-18] MEDS ORDERED: TPN Consult Notification XX ONE (13:25)
--- NOTE | 2024-01-18 16:21 | NUR ---
PATIENT HAD JUST RETURNED FROM A PROCEDURE. DISCUSSED CASE WITH BEDSIDE RN. PATIENT REPORTED THAT HE WAS SORE BUT THE PAIN WAS A BIT BETTER AT THIS TIME. HE REPORTED NO PAIN AT THIS TIME. CONFIRMED FULL CODE STATUS. PC WILL CONTINUE TO FOLLOW
[2024-01-18] MEDS ORDERED: POTASSIUM CHLORIDE 40 MEQ IV SCH (17:00)
[2024-01-18] MEDS ORDERED: SODIUM CHLORIDE IV SCH (17:00)
[2024-01-18] MEDS ORDERED: [UNRECOGNIZED DRUG - OTHER] IV SCH (17:00)
--- NOTE | 2024-01-18 17:48 | NUR ---
SHIFT SUMMARY PATIENT ARRIVED TO PCU AT APPROX. 1210, HIS MOTHER WAS AT BEDSIDE. HE WAS ALERT AND ORIENTED TO SELF, PLACE, SITUATION, PERSON AND YEAR. HR NOTED TO BE IN NSR PER TELE MONITORING, BP STABLE. SPO2 MAINTAINED >95% VIA 1L NC, THIS RN TRAILED PT ON RA BUT SPO2 DESATURATED WHILE SLEEPING THEREFORE 1L VIA NC USED. NG TUBE IS CONNECTED TO LOW INTERMITTENT SUCTION PER EMAR ORDERS. NATASHA DRESSING LOCATED OVER MIDLINE ABD INCISION IS IN PLACE, THERE IS SCANT AMOUNT OF RED DRAINAGE ON DRESSING THAT THE RECOVERY NURSE REPORTED PRIOR TO ARRIVAL TO PCU AND REMAINS UNCHANGED. THIS RN PROVIDED WOUND CARE OVER WOUND ON COCCYX AND PERINEUM PER EMAR ORDERS AFTER CONSULTING WITH WOUND CLINIC THE PATIENT IS A WOUND CLINIC PATIENT WELL. ALSO PLEASE SEE CHART FOR WOUNDS. SUPRAPUBIC CATHETER IS IN PLACE AND DRAINING YELLOW OUTPUT TO GRAVITY, IT WAS REPORTED THAT THE CATHETER INSERTION SITE IS LEAKING AND THAT DR. BONILLA IS AWARE, THERE DOES NOT APPEAR TO BE ANY LEAKAGE AT THIS TIME, 4X4 GAUZE IN PLACE AT CATHETER INSERTION SITE AND IS D/C/I. PT REPORTED PAIN IN ABD, PLEASE SEE EMAR FOR PAIN MANGEMENT. HE HAS BEEN TURNED Q2 WELL PRN FOR COMFORT TO KEEP OFF OF PRESSURE POINTS. HIS FATHER AND STEP MOTHER ALSO CAME TO BEDSIDE DURING SHIFT. THERE IS A POWER PICC IN PLACE IN [facility] FOR TPN, PHARMACY NOTIFIED BY PADMINI ANDRADE RN THAT PICC LINE IS IN PLACE. CALL LIGHT IS W/IN REACH.
[2024-01-19] VITALS (10 sets, daily range): BP systolic 102–127; BP diastolic 76–94
[2024-01-19] MEDS ORDERED: Morphine Sulfate 4 MG/1 ML Injection IV PRN ×2 (01:29→12:15)
[2024-01-19 05:08] LABS: BASOPHILS ABSOLUTE AUTO 0.09 K/mm3 (0.00-0.23); BASOPHILS PERCENT AUTO 1 % (0-2); EOSINOPHILS PERCENT AUTO 2 % (0-6); Hematocrit 47.6 % (37.0-53.0); Hemoglobin 14.1 g/dL (13.5-17.5); IMMATURE GRAN ABSOLUTE AUTO 0.22 K/mm3 (0.00-0.10); IMMATURE GRAN PERCENT AUTO 1 % (0-1); LYMPHOCYTES ABSOLUTE AUTO 1.28 K/mm3 (0.84-5.20); LYMPHOCYTES PERCENT AUTO 8 % (21-46); MONOCYTES ABSOLUTE AUTO 1.11 K/mm3 (0.16-1.47); MONOCYTES PERCENT AUTO 7 % (4-13); Mean Corpuscular HGB 27.5 pg (26.0-34.0); Mean Corpuscular HGB Conc 29.6 g/dL (31.5-36.5); Mean Corpuscular Volume 93 fL (80-100); Mean Platelet Volume 11.4 fL (9.1-12.4); NEUTROPHILS ABSOLUTE AUTO 12.64 K/mm3 (1.96-9.15); NEUTROPHILS PERCENT AUTO 81 % (41-73); Platelet Count 217 K/mm3 (150-400); RDW Coefficient Variation 16.4 % (11.7-14.2); RDW Standard Deviation 55.8 fL (35.1-46.3); Red Blood Cell Count 5.13 M/mm3 (4.30-5.90); White Blood Cell Count 15.64 K/mm3 (4.00-11.30)
[2024-01-19 05:26] LABS: Anion Gap 10 mmol/L (3-11); Blood Urea Nitrogen 46 mg/dL (8-24); Bun/Creatinine Ratio 26.9 (12.0-20.0); CO2, Blood 40 mmol/L (21-32); Calcium, Blood 8.4 mg/dL (8.5-10.1); Chloride, Blood 102 mmol/L (98-108); Creatinine, Blood 1.71 mg/dL (0.60-1.20); Glomerular Filtration Rate 50 (60-); Glucose, Blood 131 mg/dL (70-99); Phosphorus, Blood 4.5 mg/dL (2.5-4.9); Potassium, Blood 3.4 mmol/L (3.5-5.5); Sodium, Blood 149 mmol/L (136-145); Triglycerides 283 mg/dL (30-160)
--- NOTE | 2024-01-19 06:48 | NUR ---
PT STABLE OVER NIGHT. PT HAS FLAT AFFECT AND CAN BE EASILY IRRITABLE. PT HAS DIFFICULTY EXPLAINING THE DETAILS OF HIS NEEDS BUT IS ABLE TO MAKE THE GENERAL NEED KNOWN. PT CAN BE VERY PARTICULAR ABOUT HIS REPOSITIONING. SUPRAPUBIC VILA CONTINUES TO HAVE A SMALL LEAK AT STOMA AND DRAIN SPONGES APPLIED TO HELP WITH DRAINAGE. SKIN AROUND SUPRAPUBIC CATH SITE REMAINS INTACT. SUPRAPUBIC VILA CONTINUES TO HAVE URINE OUTPUT TO DRAIN BAG. PT DOES HAVE WOUNDS TO HIS COCCYX AND PERINEAL AREA AND ARE CLEAN,DRY,INTACT AT THIS TIME. MID LINE ABD INCISION NATASHA DRESSING HAS SOME MINIMAL SANGUINOUS DRAINAGE. NGT TUBE CONTINUES TO PUT OUT BILIOUS GREEN CONTENTS. SUCTIONS REMAINS LOW/INTERMITTENT. PT TOLERATING TPN WELL AND MAINTAING GOOD CBG. RLQ ABD STOMA BUDDEN,INTACT/BEEFY RED. PERISTOMAL SKIN INTACT. PT HAS C/O OF PAIN AND BEEN MEDICATED X2 WITH 4MG MORPHINE. PT REMAINS ON 2LO2 BY NC.
[2024-01-19] MEDS ORDERED: Ondansetron HCl 2 MG / ML 2ML Vial IV PRN (08:10)
[2024-01-19] MEDS ORDERED: HYDROmorphone HCl/Pf 1MG SYR IV PRN (09:45)
--- NOTE | 2024-01-19 10:45 | NUR ---
WOUND CARE COMPLETED PER ORDER.
--- NOTE | 2024-01-19 12:00 | NUR ---
MORNING/TRANSFER SUMMARY THE PT IS A&OX4, MUMBLES/IS SOFT SPOKEN, BEDREST, Q2 TURN. Q6 CBG'S D/T NPO STATUS, AND HE IS VERY WITHDRAWN AND NOT RECEPTIVE TO EDUCATION. THE PT KEEP SAYING HE WANTS TO BE "IN A NORMAL PLACE", AND WHEN ASKED TO ELABORATE HE TALKS ABOUT THE MONITORS, STAFF, LINES, AND TUBES. HE IS VERY DOWN, AND IS TAKING EMOTIONS OUT ON STAFF. THE PT'S MOM STOPPED BY AND LEFT D/T SIMILIAR EXPERIENCES. THE PT HAD WOUND CARE TODAY ON HIS COCCYX PER ORDERS; HIS MIDLINE DRESSINIG W/ A NATASHA DRAIN IS INTACT, W/ NO NEW DRAINAGE. DR. BONILLA STOPPED BY AND OKAY'D THE PT TO SIP ON ONE CUP OF WATER T/O THE DAY. THE PT HAS A COLOSTOMY IN THE RLQ W/O ANY OUTPUT. HIS SP VILA IS LEAKING AT THE INSERTION SITE. DR. BONILLA AND HOSP TEAM AWARE. DR. BONILLA STATES THE PT NEEDS TO F/U WITH HIS UROLOGIST OUT PT. HE HAS AN NG TUBE SET TO LIS AND IS HAVING GREEN BILOUS OUTPUT. THE PT REMAINS NPO AND HAC CPN INFUSING THROUGH HIS PICC LINE IN HIS LEFT UPPER ARM. THE PT IS TRANSFERING TO ROOM 226.
[2024-01-19] MEDS ORDERED: FentaNYL Citrate 50 MCG/ML 2 ML Injection IV PRN (12:15)
[2024-01-19] MEDS ORDERED: Piperacillin/Tazobactam Sod 4.5 GM in NS 100 ML IV SCH (16:00)
--- NOTE | 2024-01-19 18:53 | NUR ---
SHIFT SUMMARY PT A&O3/CONFUSED/PLEASANT/COOPERATIVE, REPOSITIONED Q2H, CHRONIC SUPRAPUBIC VOIDING WELL, POWERGLIDE/PICC/IV LHAND, NGT LIS, POD1 EXP LAP, NATASHA DRY/INTACT/WNL, OSTOMY-NO OUTPUT, NPO/SIPS & ICECHIPS. WILL REPORT TO ONCOMING NOC RN.
[2024-01-20 04:05] VITALS: BP 131/95
--- NOTE | 2024-01-20 04:46 | NUR ---
SHIFT SUMMARY POD 2 EX LAP W/SARA AND RESECTION ANASTOMOSIS REPAIR PT RESTED T/O SHIFT. PAIN MANAGED PER EMAR. TURNED EVERY COUPLE OF HOURS. NG OUTPUT OVER 1200ML DURING THE SHIFT. VILA IS DRAINING TO GRAVITY, CATH CARE PROVIDED AND SPONGES CHANGED. CPN AND ABX INFUSING PER EMAR. NATASHA TO MIDLINE IS C/D/I OTHER THAN ONE QUATER SIZE SPOT OF DRAINAGE. OSTOMY HAS HAD NO OUTPUT THIS SHIFT. VSS NO OTHER CONCERNS A THIS TIME, CALL LIGHT WITHIN REACH
[2024-01-20 05:48] LABS: BASOPHILS ABSOLUTE AUTO 0.11 K/mm3 (0.00-0.23); BASOPHILS PERCENT AUTO 1 % (0-2); EOSINOPHILS ABSOLUTE AUTO 0.74 K/mm3 (0.00-0.68); EOSINOPHILS PERCENT AUTO 5 % (0-6); Hematocrit 47.6 % (37.0-53.0); Hemoglobin 14.4 g/dL (13.5-17.5); IMMATURE GRAN ABSOLUTE AUTO 0.33 K/mm3 (0.00-0.10); IMMATURE GRAN PERCENT AUTO 2 % (0-1); LYMPHOCYTES ABSOLUTE AUTO 1.33 K/mm3 (0.84-5.20); LYMPHOCYTES PERCENT AUTO 8 % (21-46); MONOCYTES ABSOLUTE AUTO 1.44 K/mm3 (0.16-1.47); MONOCYTES PERCENT AUTO 9 % (4-13); Mean Corpuscular HGB 27.3 pg (26.0-34.0); Mean Corpuscular HGB Conc 30.3 g/dL (31.5-36.5); Mean Corpuscular Volume 90 fL (80-100); Mean Platelet Volume 11.5 fL (9.1-12.4); NEUTROPHILS ABSOLUTE AUTO 12.02 K/mm3 (1.96-9.15); NEUTROPHILS PERCENT AUTO 75 % (41-73); Platelet Count 254 K/mm3 (150-400); RDW Coefficient Variation 16.3 % (11.7-14.2); RDW Standard Deviation 54.6 fL (35.1-46.3); Red Blood Cell Count 5.28 M/mm3 (4.30-5.90); White Blood Cell Count 15.97 K/mm3 (4.00-11.30)
[2024-01-20 06:00] LABS: Calcium, Blood 9.2 mg/dL (8.5-10.1); Creatinine, Blood 1.78 mg/dL (0.60-1.20); Phosphorus, Blood 3.9 mg/dL (2.5-4.9); Potassium, Blood 3.4 mmol/L (3.5-5.5)
[2024-01-20 07:14] VITALS: BP 93/65
[2024-01-20] MEDS ORDERED: Lactated Ringer's 1,000 ML IV ONE (11:20)
[2024-01-20] MEDS ORDERED: Dose Adjust by Pharmacy XX STA (13:02)
[2024-01-20] MEDS ORDERED: Heparin Sodium,Porcine/0.5 NS 500 ML IV SCH (13:05)
[2024-01-20 13:31] LABS: Anti-Xa UFH, PHA Monitoring <0.10 IU/mL; International Normalized Ratio 1.07; Prothrombin Time Results 11.4 Sec (9.7-11.5)
[2024-01-20 15:22] VITALS: BP 127/85
[2024-01-20] MEDS ORDERED: Lactated Ringer's 1,000 ML IV SCH (16:10)
--- NOTE | 2024-01-20 16:32 | NUR ---
DISCUSSED CASE WITH BEDSIDE RN. PATIENT HAS NOT HAD OUTPUT INTO HIS OSTOMY AT THIS POINT. NG TUBE IS STILL IN PLACE AND HAVING OUTPUT. REVIEWED MEDICATIONS DISCUSSED WITH DR. GRADY. PC WILL CONTINUE TO FOLLOW
--- NOTE | 2024-01-20 19:19 | NUR ---
DAY SUMMARY- PT REPORTS MOST DISCOMFORT IS FROM HIS BACKSIDE. PT REPOSITIONED FREQUENTLY. PT NG HAS HAD LARGE AMOUNT OF OUTPUT. PT STILL SIPS AND CHIPS. PT DRESSING IS COMPRESSED WITH SOME SHADOWING. NO OUTPUT NOTED FROM OSTOMY. PT SUPRAPUBIC STILL IS LEAKING BUT DOES HAVE OUTPUT. PT WAS STARTED ON HEPARIN ORDERED. DRESSING ON PT BACKSIDE WAS CHANGED THIS SHIFT. CALL LIGHT IN REACH AND PT USES IT APPROPIATELY.
[2024-01-20 19:29] VITALS: BP 128/90
[2024-01-21 03:26] VITALS: BP 106/74
[2024-01-21 04:34] LABS: Hematocrit 44.3 % (37.0-53.0); Hemoglobin 13.9 g/dL (13.5-17.5); Mean Corpuscular HGB 27.6 pg (26.0-34.0); Mean Corpuscular HGB Conc 31.4 g/dL (31.5-36.5); Mean Corpuscular Volume 88 fL (80-100); Mean Platelet Volume 11.6 fL (9.1-12.4); Platelet Count 273 K/mm3 (150-400); RDW Coefficient Variation 15.9 % (11.7-14.2); Red Blood Cell Count 5.04 M/mm3 (4.30-5.90); White Blood Cell Count 14.68 K/mm3 (4.00-11.30)
[2024-01-21 04:51] LABS: Bun/Creatinine Ratio 38.7 (12.0-20.0); Calcium, Blood 8.9 mg/dL (8.5-10.1); Creatinine, Blood 1.68 mg/dL (0.60-1.20); Phosphorus, Blood 3.8 mg/dL (2.5-4.9); Potassium, Blood 2.9 mmol/L (3.5-5.5)
[2024-01-21] MEDS ORDERED: Dose Adjust by Pharmacy XX STA ×2 (05:05→05:21)
[2024-01-21 05:16] LABS: BAND PERCENT MAN 3 % (0-8); BASOPHILS ABSOLUTE MAN 0.14 K/mm3 (0.00-0.23); BASOPHILS PERCENT MAN 1 % (0-2); EOSINOPHILS ABSOLUTE MAN 0.73 K/mm3 (0.00-0.68); EOSINOPHILS PERCENT MAN 5 % (0-6); LYMPHOCYTES % ATYPICAL MANUAL 1 % (0-0); LYMPHOCYTES PERCENT MAN 14 % (21-46); METAMYELOCYTE ABSOLUTE MAN 0.14 K/mm3 (0.00-0.00); METAMYELOCYTE PERCENT MAN 1 % (0-0); MONOCYTES ABSOLUTE MAN 1.17 K/mm3 (0.16-1.47); MONOCYTES PERCENT MAN 8 % (4-13); NEUTROPHILS ABSOLUTE MAN 10.27 K/mm3 (1.96-9.15); SEG NEUTROPHILS PERCENT MAN 67 % (41-73); TOTAL CELLS COUNTED 100
--- NOTE | 2024-01-21 05:54 | NUR ---
SHIFT SUMMARY PT A&O X4. VSS. NO ACUTE CHANGES. PT REMAINS ON 2 LPM NC, SPO2 WNL. NG TUBE IN PLACE AND SECURED WITH TAPE; PT WITH 500 MLS OUTPUT THIS SHIFT OF LIGHT/YELLOW THIN OUTPUT. PT TOLERATING SIPS AND CHIPS PER ORDERS. OSTOMY IN PLACE WITH 475 MLS OF SOFT, UNFORMED BROWN/YELLOW OUTPUT, WELL GAS. SUPRAPUBIC CATHETER IN PLACE WITH 550 MLS UOP. CATHETER CONTINUES TO LEAK; DRESSING CHANGED. DRESSING TO COCCYX AND SACRAL CHANGED ON DAYSHIFT; REMAINS C/D/I. REPOSITIONING Q2 OR PRN REQUESTED BY PATIENT. PICC DRESSING CHANGED. IVF PER EMAR, CPN PER EMAR, ABX AND HEPARIN PER EMAR. CBG STABLE. NATASHA DRESSING IN PLACE, REMAINS UNCHANGED FROM PREVIOUS. PAIN MEDICATION PER EMAR WITH ADEQUATE RELIEF. NO N/V THIS SHIFT. PT RESTING WELL, ABLE TO MAKE NEEDS KNOWN. CALL LIGHT IN REACH. WILL UPDATE ONCOMING RN.
[2024-01-21] MEDS ORDERED: Potassium Chl 20MEQ/Water100ML 100 ML IV SCH (06:50)
[2024-01-21 07:42] VITALS: BP 189/107
[2024-01-21] MEDS ORDERED: Heparin Sodium,Porcine 5,000 UNIT/0.5 ML SDV SC SCH (08:00)
[2024-01-21] MEDS ORDERED: [UNRECOGNIZED DRUG - OTHER] XX ONE (09:25)
[2024-01-21] MEDS ORDERED: Lactated Ringer's 1,000 ML IV SCH (13:20)
[2024-01-21 14:57] VITALS: BP 196/100
--- NOTE | 2024-01-21 18:43 | NUR ---
SHIFT SUMMARY POD8 SMALL BOWEL RESECTION WITH SARA, POD3 ANASTOMOTIC LEAK RPAIR, A/OX4, VSS OTHER THAN BEING MODERAATLY HYPERTENSIVE TODAY, GIVEN HYDRALAZINE PER EMAR, POTASSIUM IV GIVEN T/O THE SHIFT TODAY ORDERED, TRIALED CLAMPING HIS NG TUBE BUT HE HAD 1100 VIA NG AFTER ABOUT 4 HOURS CLAMPED TIME, SOME OUTPUT FROM OSTOMY TODAY, MOSTLY IN THE MORNING BUT HE DID HAVE SOME THIS AFTERNOON. SUPRAPUBIC CATHETER CONTINUES TO LEAK AROUND INSERTION SITE, PATIENT UNABLE TO TELL THIS RN WHEN THE LINE WAS CHANGED LAST. REPOSITIONED Q2 TODAY. NO ACUTE EVENTS, CALL LIGHT IN REACH.
[2024-01-22 02:49] VITALS: BP 127/91
--- NOTE | 2024-01-22 04:33 | NUR ---
SHIFT SUMMARY PT A&OX4. SMALL AMOUNT OF PO INTAKE, SIPS OF WATER. ACACIA WELL. SUPRAPUBIC CATHETER WITH YELLOW, CLOUDY OUTPUT. SCANT AMOUNT OF URINE DRAINAGE LEAKING AT INSERTION SITE; REPLACED INCONTINENCE WRAP AT CATHETER INSERTION SITE TO CATCH DRAINAGE. INSERTION SITE ABSENT OF REDNESS, SWELLING, WARMTH, MALODOR. COLOSTOMY WITH SMALL AMOUNTS OF LIQUID BROWN STOOL OUTPUT THROUGH SHIFT. MIDLINE INCISION WITH NATASHA DRESSING C/D/I, PATENT. NGT WITH LARGE AMOUNTS OF LIQUID GREEN OUTPUT. REPOSITION/TURN Q2H, 2-PERSON ASSIST. PT REPORTS MINIMAL PAIN OVER SHIFT; 1-2/10 WITH ABD PALPATION, 0/10 PAIN AT ABD WITH REST. PT ABLE TO REST DURING SHIFT. PT VOICED UNDERSTANDING, DENIES QUESTIONS/CONCERNS AT THIS TIME.
[2024-01-22 05:28] LABS: Hematocrit 46.1 % (37.0-53.0); Hemoglobin 14.9 g/dL (13.5-17.5); Mean Corpuscular HGB 28.9 pg (26.0-34.0); Mean Corpuscular HGB Conc 32.3 g/dL (31.5-36.5); Mean Corpuscular Volume 89 fL (80-100); Platelet Count 353 K/mm3 (150-400); RDW Coefficient Variation 15.7 % (11.7-14.2); RDW Standard Deviation 51.6 fL (35.1-46.3); Red Blood Cell Count 5.16 M/mm3 (4.30-5.90); White Blood Cell Count 15.34 K/mm3 (4.00-11.30)
[2024-01-22 07:18] LABS: BAND PERCENT MAN 8 % (0-8); BASOPHILS ABSOLUTE MAN 0.15 K/mm3 (0.00-0.23); BASOPHILS PERCENT MAN 1 % (0-2); EOSINOPHILS ABSOLUTE MAN 1.07 K/mm3 (0.00-0.68); EOSINOPHILS PERCENT MAN 7 % (0-6); LYMPHOCYTES ABSOLUTE MAN 1.53 K/mm3 (0.84-5.20); LYMPHOCYTES PERCENT MAN 10 % (21-46); MONOCYTES ABSOLUTE MAN 0.61 K/mm3 (0.16-1.47); MONOCYTES PERCENT MAN 4 % (4-13); MYELOCYTE ABSOLUTE MAN 0.15 K/mm3 (0.00-0.00); MYELOCYTE PERCENT MAN 1 % (0-0); NEUTROPHILS ABSOLUTE MAN 11.81 K/mm3 (1.96-9.15); SEG NEUTROPHILS PERCENT MAN 69 % (41-73); TOTAL CELLS COUNTED 100
[2024-01-22 07:30] LABS: Albumin, Blood 2.8 g/dL (3.4-5.0); Albumin/Globulin Ratio 0.4 (0.8-1.8); Bilirubin, Total 0.5 mg/dL (0.1-1.0); Bun/Creatinine Ratio 39.3 (12.0-20.0); Calcium, Blood 10.6 mg/dL (8.5-10.1); Creatinine, Blood 2.01 mg/dL (0.60-1.20); Globulin, Blood 7.6 g/dL (2.2-4.0); Potassium, Blood 4.5 mmol/L (3.5-5.5); Total Protein, Blood 10.4 g/dL (6.4-8.2)
[2024-01-22 07:41] VITALS: BP 97/75
--- NOTE | 2024-01-22 10:00 | NUR ---
DR. MILLER ROUNDED DISCUSSED DECREASED KIDNEY FUNCTION, LOW URINARY OUTPUT, ELEVATED WHITE COUNT AND LOW BLOOD PRESSURE. PT ASYMPTOMATIC OF LOW BLOOD PRESSURE. IV FLUIDS STARTED.
[2024-01-22] MEDS ORDERED: Lactated Ringer's 1,000 ML IV SCH (10:30)
[2024-01-22] MEDS ORDERED: Nystatin 100,000 Unit/ML Susp 5 ML UDC MT SCH (13:00)
--- NOTE | 2024-01-22 15:30 | NUR ---
DRESSING TO COCCYX CHANGED. SKIN CLEANSED AROUND THE SITE. CALCIUM ALGENATE PLACED ON OPEN SITE. PRESSURE PREVENTION DRESSING PLACED ON UPPER PORTION OF COCCYX FOR COMFORT AND ON LOWER PRORTION TO HOLD CALCIUM ALGENATE IN PLACE.
[2024-01-22 15:42] VITALS: BP 92/80
[2024-01-22] MEDS ORDERED: NS 1,000 ML IV ONE (17:00)
--- NOTE | 2024-01-22 17:00 | NUR ---
DR. MILLER ROUNDED THIS EVENING. SHE WAS NOTIFIED THAT PT HAS NOT HAD ANY URINARY OUTPUT THIS SHIFT. FLUID BOLUS ORDERED PER DR. MILLER.
--- NOTE | 2024-01-22 20:05 | NUR ---
SHIFT SUMMARY PT HAS HAD INCREASED COCCYX DISCOMFORT THIS SHIFT, PAIN MANAGED WITH FENTANYL AND REPOSITIONING. PT HAS HAD NO URINE OUTPUT THIS SHIFT, DR. MILLER IS AWARE, FLUID BOLUS GIVEN. PT HAS HAD APPROXIMATELY 2100ML OUT OF HIS NG TUBE THIS SHIFT. LR FOR HYDRATION. CPN RUNNING. PT IS A 2 PERSON ASSIST AND TOTAL CARE. BEDSIDE REPORT GIVEN TO LUIS ANTONIO PINEDA.
[2024-01-22 21:08] VITALS: BP 134/94
[2024-01-22 21:11] VITALS: BP 134/94
--- NOTE | 2024-01-22 23:35 | NUR ---
REPORT GIVEN TO PEDRO PABOL PINEDA WHO ASSUMED CARE OF PT AT THIS TIME. PT RESTING PEACEFULLY W/ CALL LIGHT IN REACH.
[2024-01-23 02:47] VITALS: BP 130/98
--- NOTE | 2024-01-23 04:08 | NUR ---
SHIFT SUMMARY A&OX4. PT ABLE TO VOICE NEEDS; CALL LIGHT IN REACH. RESUMED CARE OF PATIENT AT 2200 01/22/24 FROM ANTONY PINEDA. PT PAIN BEING MANAGED WITH NPI AND PER EMAR, REQUIRING INCREASED DOSES OF PRN ANALGESICS. PT REPORTS PAIN PRIMARILY AT COCCYX, SECONDARY PAIN AT MIDLINE ABD INCISION SITE. FREQUENT REPOSITIONING & TURNS DURING SHIFT, 2PA & LIFT UTILIZED. NGT WITH LARGE OUTPUT OF GREEN LIQUID. AT 0300, NGT OUTPUT TRANSITIONED TO GREEN/BROWN LIQUID. UOP VIA SUPRAPUBIC CATHETER WAS HAVING SCANT OUTPUT AT BEGINNING OF SHIFT, BUT STEADILY INCREASED OVER COURSE OF SHIFT. CRESCENCIO YELLOW, CLOUDY. IVF PER EMAR.CPN PER EMAR. NPO EXCEPT FOR SIPS AND CHIPS. OSTOMY WITH MINIMAL LIQUID BROWN OUTPUT. MIDLINE ABD NATASHA DRESSING W/O ACUTE CHANGES OVER SHIFT, PREVIOUSLY EXISTING DRAINAGE UNCHANGED - CDI, PATENT. COCCYX DRESSING CDI. PT VOICED UNDERSTANDING, DENIES QUESTIONS/CONCERNS AT THIS TIME.
[2024-01-23 07:04] LABS: Hematocrit 41.2 % (37.0-53.0); Hemoglobin 13.6 g/dL (13.5-17.5); Mean Corpuscular HGB 27.7 pg (26.0-34.0); Mean Platelet Volume 11.7 fL (9.1-12.4); Platelet Count 349 K/mm3 (150-400); RDW Coefficient Variation 15.4 % (11.7-14.2); Red Blood Cell Count 4.91 M/mm3 (4.30-5.90); White Blood Cell Count 17.94 K/mm3 (4.00-11.30)
[2024-01-23 07:54] LABS: Albumin, Blood 1.9 g/dL (3.4-5.0); Albumin/Globulin Ratio 0.4 (0.8-1.8); Bilirubin, Total 0.4 mg/dL (0.1-1.0); Bun/Creatinine Ratio 36.6 (12.0-20.0); Creatinine, Blood 2.54 mg/dL (0.60-1.20); Globulin, Blood 5.1 g/dL (2.2-4.0); Potassium, Blood 3.5 mmol/L (3.5-5.5)
[2024-01-23 07:55] LABS: Calcium, Blood 8.3 mg/dL (8.5-10.1)
[2024-01-23 08:30] LABS: Mean Corpuscular Volume 84 fL (80-100)
[2024-01-23 08:37] LABS: BAND PERCENT MAN 1 % (0-8); BASOPHILS ABSOLUTE MAN 0.17 K/mm3 (0.00-0.23); BASOPHILS PERCENT MAN 1 % (0-2); EOSINOPHILS ABSOLUTE MAN 0.53 K/mm3 (0.00-0.68); EOSINOPHILS PERCENT MAN 3 % (0-6); LYMPHOCYTES ABSOLUTE MAN 0.71 K/mm3 (0.84-5.20); LYMPHOCYTES PERCENT MAN 4 % (21-46); MONOCYTES ABSOLUTE MAN 1.79 K/mm3 (0.16-1.47); MONOCYTES PERCENT MAN 10 % (4-13); MYELOCYTE ABSOLUTE MAN 0.17 K/mm3 (0.00-0.00); MYELOCYTE PERCENT MAN 1 % (0-0); NEUTROPHILS ABSOLUTE MAN 14.53 K/mm3 (1.96-9.15); SEG NEUTROPHILS PERCENT MAN 80 % (41-73); TOTAL CELLS COUNTED 100
[2024-01-23 08:56] VITALS: BP 138/105
[2024-01-23] MEDS ORDERED: Lactated Ringer's 1,000 ML IV SCH (09:30)
--- NOTE | 2024-01-23 09:30 | NUR ---
DR. MILLER ROUNDED DISCUSSED DECREASED KIDNEY FUNCTION AND NG TUBE OUTPUT. PER DR. MILLER CONTINUE LR AT THIS TIME. PLAN FOR ABD CT TOMORROW.
[2024-01-23] MEDS ORDERED: Lactated Ringer's 1,000 ML IV ONE (09:31)
[2024-01-23 09:32] LABS: Triglycerides 534 mg/dL (30-160)
[2024-01-23] MEDS ORDERED: TPN Consult Notification XX ONE (12:50)
--- NOTE | 2024-01-23 15:00 | NUR ---
DRESSING TO COCCYX CHANGED. CALCIUM ALGENATE APPLIED. COVERED WITH ABSORBANT DRESSING.
[2024-01-23 15:07] VITALS: BP 145/93
[2024-01-23] MEDS ORDERED: FentaNYL Citrate 50 MCG/ML 2 ML Injection IV PRN (16:10)
[2024-01-23 16:52] LABS: Anion Gap 17 mmol/L (3-11); Blood Urea Nitrogen 100 mg/dL (8-24); CO2, Blood 32 mmol/L (21-32); Calcium, Blood 8.6 mg/dL (8.5-10.1); Chloride, Blood 88 mmol/L (98-108); Creatinine, Blood 2.78 mg/dL (0.60-1.20); Glomerular Filtration Rate 28 (60-); Glucose, Blood 104 mg/dL (70-99); Phosphorus, Blood 6.9 mg/dL (2.5-4.9); Potassium, Blood 3.4 mmol/L (3.5-5.5); Sodium, Blood 134 mmol/L (136-145)
[2024-01-23] MEDS ORDERED: [UNRECOGNIZED DRUG - OTHER] IV SCH ×2 (17:00)
[2024-01-23] MEDS ORDERED: CUSO4 P HYD IV SCH ×2 (17:00)
[2024-01-23] MEDS ORDERED: CALCIUM IV SCH ×2 (17:00)
--- NOTE | 2024-01-23 17:25 | NUR ---
CALL PLACED TO DR. MILLER REGARDING FLUID BALANCE AND KIDNEY FUNCTION. PLAN TO CONTINUE WITH LR AT 150ML PER DR. MILLER.
[2024-01-23 20:15] VITALS: BP 136/79
--- NOTE | 2024-01-23 20:44 | NUR ---
SHIFT SUMMARY PAIN MANAGED WITH FENTANYL TODAY, FREQUENCY INCREASED FOR IMPROVED PAIN MANAGEMENT. OUTPUT FROM NG TUBE DECREASING. NO OSTOMY OUTPUT THIS SHIFT. PT REQUESTED SPIRITUAL CARE, ORDER PLACED. PT REPOSITIONED FREQUENTLY T/O THE SHIFT. PT REMAINS ON CPN. FAMILY VISITED FOR SUPPORT. URINE OUTPUT IMPROVED THIS SHIFT. BEDSIDE REPORT GIVEN TO LUIS ANTONIO PINEDA.
[2024-01-24 02:45] VITALS: BP 132/91
[2024-01-24 04:07] LABS: BASOPHILS ABSOLUTE AUTO 0.05 K/mm3 (0.00-0.23); BASOPHILS PERCENT AUTO 0 % (0-2); EOSINOPHILS ABSOLUTE AUTO 0.32 K/mm3 (0.00-0.68); EOSINOPHILS PERCENT AUTO 3 % (0-6); Hematocrit 33.4 % (37.0-53.0); Hemoglobin 10.8 g/dL (13.5-17.5); IMMATURE GRAN ABSOLUTE AUTO 0.32 K/mm3 (0.00-0.10); IMMATURE GRAN PERCENT AUTO 3 % (0-1); LYMPHOCYTES ABSOLUTE AUTO 1.25 K/mm3 (0.84-5.20); LYMPHOCYTES PERCENT AUTO 10 % (21-46); MONOCYTES ABSOLUTE AUTO 1.38 K/mm3 (0.16-1.47); MONOCYTES PERCENT AUTO 11 % (4-13); Mean Corpuscular HGB 27.4 pg (26.0-34.0); Mean Corpuscular HGB Conc 32.3 g/dL (31.5-36.5); Mean Corpuscular Volume 85 fL (80-100); Mean Platelet Volume 11.5 fL (9.1-12.4); NEUTROPHILS PERCENT AUTO 73 % (41-73); Platelet Count 222 K/mm3 (150-400); RDW Coefficient Variation 14.7 % (11.7-14.2); RDW Standard Deviation 45.6 fL (35.1-46.3); Red Blood Cell Count 3.94 M/mm3 (4.30-5.90); White Blood Cell Count 12.12 K/mm3 (4.00-11.30)
[2024-01-24 04:24] LABS: Bun/Creatinine Ratio 40.7 (12.0-20.0); Calcium, Blood 7.1 mg/dL (8.5-10.1); Creatinine, Blood 1.94 mg/dL (0.60-1.20); Magnesium, Blood 1.6 mg/dL (1.6-2.4); Phosphorus, Blood 4.7 mg/dL (2.5-4.9); Potassium, Blood 2.6 mmol/L (3.5-5.5)
--- NOTE | 2024-01-24 04:55 | NUR ---
SHIFT SUMMARY NGT WITH MODERATE BROWN OUTPUT. OSTOMY WITH MINIMAL PASTY BROWN OUTPUT. SUPRAPUBIC CATH WITH MODERATE YELLOW/CLOUDY OUTPUT. TOTAL PO FLUID INTAKE 240ML. DRESSINGS REMAINED CDI. PAIN MANAGED WITH NPIS AND PER EMAR. FREQUENT REPOSITIONING, 2 PERSON MAX ASSIST. PT VOICED UNDERSTANDING OF PLAN OF CARE, DENIES QUESTIONS/CONCERNS AT THIS TIME.
[2024-01-24] MEDS ORDERED: Potassium Chl 20MEQ/Water100ML 100 ML IV SCH (06:45)
[2024-01-24 07:16] VITALS: BP 144/77
[2024-01-24] MEDS ORDERED: Lactated Ringer's 1,000 ML IV SCH (08:40)
--- NOTE | 2024-01-24 10:24 | NUR ---
Pt's NG tube clampted at this time per doctors orders.
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
--- NOTE | 2024-01-24 13:36 | NUR ---
PT NG TUBE HOOKED BACK UP TO SUCTION AFTER 4 HOURS OFF PER PHYSICIANS ORDERS. WILL MONITOR OUTPUT AND NOTIFY PHYSICIAN OF CONTENT AMOUNT REQUESTED.
[2024-01-24 14:19] VITALS: BP 127/77
[2024-01-24 17:03] LABS: Bun/Creatinine Ratio 34.4 (12.0-20.0); Calcium, Blood 9.8 mg/dL (8.5-10.1); Creatinine, Blood 2.41 mg/dL (0.60-1.20); Potassium, Blood 4.4 mmol/L (3.5-5.5)
--- NOTE | 2024-01-24 17:38 | NUR ---
SHIFT SUMMARY POD 10 BOWEL RESECTION. OSTOMY BEEFY RED, PUTTING OUT SMALL AMOUNTS DARK BROWN LIQUID STOOL. MIDLINE INCISION COVERED WITH NATASHA, SCANT DRAINAGE NOTED. NG TUBE WAS CLAMPED PER PHYSICIANS INSTRUCTIONS, TO BE HOOKED BACK UP TO SUCTION TONIGHT AT 7PM. CONTINUED TO REPOSITION Q2 HOURS, TWO PERSON ASSIST. NO ACUTE EVENTS NOTED TODAY. PAIN MANAGED PER EMAR. VSS.
[2024-01-24 19:32] VITALS: BP 170/103
[2024-01-24 23:21] VITALS: BP 188/111
--- NOTE | 2024-01-25 04:01 | NUR ---
SHIFT SUMMARY HOLLAND WAS ALERT AND FULLY ORIENTED ON ASSESMENT. PT REQUIRING FREQUENT PAIN MANAGEMENT, REPOSITIONED AT LEAST Q2, SUPRAPUBIC CATHETER LEAKING AT INSERTION SITE, ABSORBENT DRESSING APPLIED, DRESSING TO PT COCCYX CHANGED THIS SHIFT. MIDLINE NATASHA DRESSING IS PARTLY SATURATED BUT STILL FUNCTIONING INTENDED. CATH CARE PROVIDED. HYDRALAZINE GIVEN FOR ELEVATED BP ABOVE ADMIN CUTOFF. PT RESTING IN BED, USES CALL LIGHT APPROPRIATELY.
[2024-01-25 04:21] VITALS: BP 159/103
[2024-01-25 05:40] LABS: BASOPHILS ABSOLUTE AUTO 0.09 K/mm3 (0.00-0.23); BASOPHILS PERCENT AUTO 1 % (0-2); EOSINOPHILS ABSOLUTE AUTO 0.14 K/mm3 (0.00-0.68); EOSINOPHILS PERCENT AUTO 1 % (0-6); Hematocrit 44.6 % (37.0-53.0); Hemoglobin 14.4 g/dL (13.5-17.5); IMMATURE GRAN ABSOLUTE AUTO 0.45 K/mm3 (0.00-0.10); IMMATURE GRAN PERCENT AUTO 3 % (0-1); LYMPHOCYTES ABSOLUTE AUTO 1.39 K/mm3 (0.84-5.20); LYMPHOCYTES PERCENT AUTO 10 % (21-46); MONOCYTES PERCENT AUTO 13 % (4-13); Mean Corpuscular HGB 27.6 pg (26.0-34.0); Mean Corpuscular HGB Conc 32.3 g/dL (31.5-36.5); Mean Corpuscular Volume 86 fL (80-100); Mean Platelet Volume 12.3 fL (9.1-12.4); NEUTROPHILS PERCENT AUTO 73 % (41-73); Platelet Count 367 K/mm3 (150-400); RDW Coefficient Variation 15.3 % (11.7-14.2); Red Blood Cell Count 5.21 M/mm3 (4.30-5.90); White Blood Cell Count 14.17 K/mm3 (4.00-11.30)
[2024-01-25 06:54] LABS: Magnesium, Blood 2.2 mg/dL (1.6-2.4)
[2024-01-25 06:57] LABS: Alanine Aminotransfer (ALT/SGP 80 U/L (12-78); Albumin, Blood 2.4 g/dL (3.4-5.0); Albumin/Globulin Ratio 0.3 (0.8-1.8); Alk Phos 72 U/L (50-136); Anion Gap 18 mmol/L (3-11); Aspartate Aminotrans (AST/SGOT 49 U/L (12-37); Bilirubin, Total 0.4 mg/dL (0.1-1.0); Blood Urea Nitrogen 87 mg/dL (8-24); Bun/Creatinine Ratio 33.3 (12.0-20.0); CO2, Blood 32 mmol/L (21-32); Chloride, Blood 94 mmol/L (98-108); Creatinine, Blood 2.61 mg/dL (0.60-1.20); Globulin, Blood 7.1 g/dL (2.2-4.0); Glomerular Filtration Rate 30 (60-); Glucose, Blood 129 mg/dL (70-99); Phosphorus, Blood 5.9 mg/dL (2.5-4.9); Potassium, Blood 3.6 mmol/L (3.5-5.5); Sodium, Blood 140 mmol/L (136-145); Total Protein, Blood 9.5 g/dL (6.4-8.2); Triglycerides 603 mg/dL (30-160)
[2024-01-25] MEDS ORDERED: Lactated Ringer's 1,000 ML IV SCH ×2 (07:00→09:00)
[2024-01-25 07:15] VITALS: BP 119/64
--- NOTE | 2024-01-25 08:47 | NUR ---
PT TAKEN TO IMAGING VIA HOSPITAL BED. VSS. NG CLAMPED, IV SALINE LOCKED.
--- NOTE | 2024-01-25 09:02 | NUR ---
PT ARRIVED TO ROOM FROM IMAGING. NG HOOKED UP TO INTERMITTENT LOW SUCTION. IV FLUIDS RUNNING PER EMAR. VSS.
[2024-01-25] MEDS ORDERED: TPN Consult Notification XX ONE (09:35)
--- NOTE | 2024-01-25 09:41 | NUR ---
NG TUBE CLAMPED AT 0930 FOR FOUR HOURS PER PHYSICIAN ORDERS.
[2024-01-25 14:17] VITALS: BP 168/93
--- NOTE | 2024-01-25 14:36 | NUR ---
NG tube removed at this time per doctors orders. Pt tolerated well. Continued NPO, okay for ice chips.
--- NOTE | 2024-01-25 16:32 | NUR ---
Spiritual care visit conducted. Patient welcomed spiritual care and talked about the music that he enjoys. I played him a song that was on youtube that my son in law wrote and patient stated that it was encouraging. I provided emotional support, companionship and a calming presence. Patient responded well and showed signs of an elevated mood.
[2024-01-25] MEDS ORDERED: POTASSIUM CHLORIDE 60 MEQ IV SCH (17:00)
[2024-01-25] MEDS ORDERED: CUSO4 P HYD IV SCH (17:00)
[2024-01-25] MEDS ORDERED: [UNRECOGNIZED DRUG - OTHER] IV SCH (17:00)
[2024-01-25] MEDS ORDERED: CALCIUM IV SCH (17:00)
[2024-01-25] MEDS ORDERED: [UNRECOGNIZED DRUG - OTHER] IV SCH (17:00)
[2024-01-25] MEDS ORDERED: SODIUM CHLORIDE IV SCH (17:00)
--- NOTE | 2024-01-25 17:24 | NUR ---
Shift Summary: POD 11 Bowel Resection. Pt's NG tube removed today. Ostomy output dark brown/black, stoma beefy red. Repositioned frequently throughout the day. Pain managed per emar. Midline incision dressing changed this morning, remains C/D/I. VSS. PPP.
[2024-01-25 18:34] VITALS: BP 108/74
[2024-01-26 05:38] VITALS: BP 174/102
[2024-01-26 05:58] LABS: BASOPHILS ABSOLUTE AUTO 0.08 K/mm3 (0.00-0.23); BASOPHILS PERCENT AUTO 1 % (0-2); EOSINOPHILS ABSOLUTE AUTO 0.35 K/mm3 (0.00-0.68); EOSINOPHILS PERCENT AUTO 2 % (0-6); Hematocrit 39.9 % (37.0-53.0); Hemoglobin 12.7 g/dL (13.5-17.5); IMMATURE GRAN ABSOLUTE AUTO 0.41 K/mm3 (0.00-0.10); IMMATURE GRAN PERCENT AUTO 3 % (0-1); LYMPHOCYTES ABSOLUTE AUTO 2.09 K/mm3 (0.84-5.20); LYMPHOCYTES PERCENT AUTO 14 % (21-46); MONOCYTES ABSOLUTE AUTO 1.81 K/mm3 (0.16-1.47); MONOCYTES PERCENT AUTO 12 % (4-13); Mean Corpuscular HGB 27.7 pg (26.0-34.0); Mean Corpuscular HGB Conc 31.8 g/dL (31.5-36.5); Mean Corpuscular Volume 87 fL (80-100); Mean Platelet Volume 11.6 fL (9.1-12.4); NEUTROPHILS ABSOLUTE AUTO 9.86 K/mm3 (1.96-9.15); NEUTROPHILS PERCENT AUTO 68 % (41-73); Platelet Count 345 K/mm3 (150-400); RDW Coefficient Variation 15.5 % (11.7-14.2); RDW Standard Deviation 49.1 fL (35.1-46.3); Red Blood Cell Count 4.59 M/mm3 (4.30-5.90)
[2024-01-26 06:14] LABS: Bun/Creatinine Ratio 37.7 (12.0-20.0); Calcium, Blood 9.3 mg/dL (8.5-10.1); Creatinine, Blood 1.91 mg/dL (0.60-1.20); Magnesium, Blood 2.2 mg/dL (1.6-2.4); Phosphorus, Blood 4.2 mg/dL (2.5-4.9); Potassium, Blood 3.5 mmol/L (3.5-5.5)
--- NOTE | 2024-01-26 06:16 | NUR ---
SHIFT SUMMARY POD 7 EX LAP c SARA & ANASTAMOSIS REPAIR; POD 12 LAP TO OPEN SARA c SMALL BOWEL RESECTION. NO ACUTE CHANGES OVERNIGHT. VSS. PT REMAINS NPO, TOLERATING SIPS n CHIPS, TPN/ABX/FLUIDS INFUSING PER EMAR. OSTOMY OUTPUT c BROWN/GREEN LIQ STOOL. SUPRAPUBID CATH c YELLOW OUTPUT, CONTINUOUS LEAKING AT INSERTION SITE; DRESSING CHANGES & CATH CARE Q2P. MIDLINE INCISION C/D/I c ABD PAD/TAPE IN PLACE. CHRONIC COCCYX WOUNDS x2 c MEPILEX IN PLACE; CHANGED ONCE THIS SHIFT. BASELINE PARAPALEGIC, WEAK & DECONDITIONED; Q2 TURNS/REPOSITIONING. PT REPORTS PAIN TO ABD/BUTTOCKS/BACK CONSISTENTLY AT 5/10 c INCREASE AFTER TURNS/ WOUND CARE. CALL LIGHT IN REACH, BED IN LOWEST POSITION, WILL REPORT TO DAY RN.
[2024-01-26 07:44] VITALS: BP 168/115
[2024-01-26] MEDS ORDERED: Lactated Ringer's 1,000 ML IV SCH (08:35)
[2024-01-26 16:32] VITALS: BP 211/97
--- NOTE | 2024-01-26 18:17 | NUR ---
SUMMARY: PT IS POD7 ANASTMOSIS REPAIR. A/O, FLAT AFFECT. HTN NOTED TONIGHT, MEDICATED PER EMAR, OTHERWISE VSS TODAY. SURGICAL SITE WNL, LIQ BROWN OUTPUT FROM OSTOMY. CONTINUING WITH Q2 TURNS AND Q2 ATTEND CHANGES DUE TO SUBRAPUBIC CATH LEAK. PT TOLERATING SIPS OF WATER AND ICE CHIPS, NO N/V. TPN INFUSING AND PT CALLS FOR Q2 50MCG FENTANYAL FOR PAIN. SACRAL WOUNDS CLEANSED AND DRESSED PRN. NO ACUTE SAFETY CONCERNS. PT USES CALL LIGHT AND MAKES NEEDS KNOWN.
[2024-01-26] MEDS ORDERED: HYDROmorphone HCl/Pf 1MG SYR IV PRN (18:40)
[2024-01-26] MEDS ORDERED: OxyCODONE HCL 5 MG TAB PO PRN (18:40)
[2024-01-26 19:25] VITALS: BP 124/70
--- NOTE | 2024-01-26 23:20 | NUR ---
TRANSFER PT TO TRANSFER TO [facility] ROOM 325. REPORT GIVEN TO [facility] FLOOR RN SUE. FINISH REMOVER PREPARING PT FOR TRANSFER AT THIS TIME.
--- NOTE | 2024-01-26 23:49 | NUR ---
TRANSFER PT TRANSFERRED TO [facility] FLOOR ROOM [address]
[2024-01-27 00:07] VITALS: BP 117/74
--- NOTE | 2024-01-27 00:09 | NUR ---
PATIENT TRANSFER FROM SURGICAL RM 226. REPORT TAKEN FROM PARTHA PINEDA. FIVE PERSON TRANSFER WITH RAKA, COLOSTOMY, SUPRA PUBIC CATH AND RUNNING TPN @ 80 mL/HR. LR INFUSING @ 125 mL/HR. ARRIVED WITH DRESSING TO SUPRA PUBIC CATH WITH HX OF LEAKING. REPOSITION PER PATIENT REQUEST WITH MULTIPLE PILLOWS TO HIS SATISFACTION. DENIES CHEST PAIN, SOB, AND N/V. WCTM.
--- NOTE | 2024-01-27 04:44 | NUR ---
SHIFT SUMMARY PATIENT HAD NO ACUTE CHANGES SINCE TRANSFER. AXOX 4 AND BEDREST WITH RAKA. REPORTED BUTTOCKS PAIN X 2 AND IV DILAUDID 0.5 MG ALTERNATED WITH OXYCODONE 5 MG. REPOSITIONED PER PATIENT REQUEST. PICC LINE SRINIVASA WITH TPN INFUSING @ 80 mL/HR AND LR INFUSING @ 125 mL/HR. COLOSTOMY INTACT AND SUPRA PUBIC CATH LEAKING AT TIMES PER SURGICAL REPORT. CALL LIGHT IN REACH. BED IN LOWEST POSITION. WILL CONTINUE TO MONITOR UNTIL DAY SHIFT NURSE ASSUMES CARE.
[2024-01-27 06:45] LABS: Alanine Aminotransfer (ALT/SGP 229 U/L (12-78); Albumin, Blood 2.1 g/dL (3.4-5.0); Albumin/Globulin Ratio 0.4 (0.8-1.8); Alk Phos 68 U/L (50-136); Anion Gap 11 mmol/L (3-11); Aspartate Aminotrans (AST/SGOT 97 U/L (12-37); Bilirubin, Total 0.2 mg/dL (0.1-1.0); Blood Urea Nitrogen 47 mg/dL (8-24); Bun/Creatinine Ratio 38.8 (12.0-20.0); CO2, Blood 27 mmol/L (21-32); Calcium, Blood 8.6 mg/dL (8.5-10.1); Chloride, Blood 105 mmol/L (98-108); Creatinine, Blood 1.21 mg/dL (0.60-1.20); Globulin, Blood 5.3 g/dL (2.2-4.0); Glomerular Filtration Rate 76 (60-); Glucose, Blood 99 mg/dL (70-99); Magnesium, Blood 1.7 mg/dL (1.6-2.4); Phosphorus, Blood 2.6 mg/dL (2.5-4.9); Potassium, Blood 3.3 mmol/L (3.5-5.5); Sodium, Blood 140 mmol/L (136-145); Total Protein, Blood 7.4 g/dL (6.4-8.2); Triglycerides 521 mg/dL (30-160)
[2024-01-27 06:47] LABS: BASOPHILS PERCENT AUTO 1 % (0-2); EOSINOPHILS ABSOLUTE AUTO 0.35 K/mm3 (0.00-0.68); EOSINOPHILS PERCENT AUTO 3 % (0-6); Hematocrit 35.2 % (37.0-53.0); Hemoglobin 11.2 g/dL (13.5-17.5); IMMATURE GRAN ABSOLUTE AUTO 0.47 K/mm3 (0.00-0.10); IMMATURE GRAN PERCENT AUTO 4 % (0-1); LYMPHOCYTES PERCENT AUTO 15 % (21-46); MONOCYTES PERCENT AUTO 13 % (4-13); Mean Corpuscular HGB 27.8 pg (26.0-34.0); Mean Corpuscular HGB Conc 31.8 g/dL (31.5-36.5); Mean Corpuscular Volume 87 fL (80-100); Mean Platelet Volume 11.7 fL (9.1-12.4); NEUTROPHILS ABSOLUTE AUTO 7.76 K/mm3 (1.96-9.15); NEUTROPHILS PERCENT AUTO 65 % (41-73); Platelet Count 275 K/mm3 (150-400); RDW Coefficient Variation 15.2 % (11.7-14.2); RDW Standard Deviation 48.6 fL (35.1-46.3); Red Blood Cell Count 4.03 M/mm3 (4.30-5.90); White Blood Cell Count 11.98 K/mm3 (4.00-11.30)
[2024-01-27] MEDS ORDERED: Mag Sulfate 1 GM/D5% 100ML 100 ML IV STA (06:59)
[2024-01-27] MEDS ORDERED: Potassium Chl 20MEQ/Water100ML 100 ML IV STA (07:00)
[2024-01-27] MEDS ORDERED: Ketorolac Tromethamine 15mg Vial IV PRN (07:30)
[2024-01-27 07:44] VITALS: BP 181/90
[2024-01-27] MEDS ORDERED: Gabapentin 100 MG Cap PO SCH (14:00)
[2024-01-27 15:24] VITALS: BP 116/84
[2024-01-27] MEDS ORDERED: Metoclopramide HCl 5MG / ML 2ML Vial IV PRN (16:25)
[2024-01-27 19:29] VITALS: BP 129/90
--- NOTE | 2024-01-27 20:31 | NUR ---
SHIFT SUMMARY- PT PAIN DID NOT APPEAR TO BE WELL MANAGED WITH THE PO MEDICATIONS. PT STATED THE TORADOL DID NOT HELP AT ALL. IV DILAUDID SEEMED TO HELP FOR A BIT. DIET WAS ADVANCED TO FULL LIQUID FOR LUNCH, AT AROUND 1400 THE PT BECAME NAUSEATED AND VOMITED A LITTLE. MEDICATED WITH ZOFRAN, NO CHANGE. CALLED DR GUPTA AND RECIEVED AN ORDER FOR IV REGLAN. THE PT DECLINED DINNER AND BEGAN VOMITING AGAIN AROUND [address]. CALL[address] DR GUPTA, RECIEVED ORDER TO MAKE THE PT NPO AND CALL DR BONILLA. THE PT ABDOMEN SEEMED MODERATLY FIRM AND DISTENDED THIS MORNING, HOWEVER THIS EVENING IT SEEMS SIGHTLY LARGER AND MORE FIRM. CALLED DR BONILLA ON HER CELL PHONE. ORDER TO REASSURE THE PT THAT IT IS JUST GOING TO TAKE TIME FOR THESE THINGS TO GET MOVING AGAIN, HE HAS HAD 2 CT SCANS THAT SHOW NO OBSTRUCTION. SPOKE TO HER ABOUT THE LACK OF OUTPUT IN THE OSTOMY TODAY SHE IS AWARE. AFTER SHIFT CHANGE THE PT BEGAN VOMITING MORE DARK BROWN FLUID, NIGHT RN AWARE AND IS CALLING NIGHT HOSPITALIST. PT SUPRAPUBIC CATH BEGAN LEAKING LARGE AMOUNTS OF YELLOW URINE, SOILING LINNENS, HIS WOUND DRESSING, AD HIS MEPILEX. ALL WERE CHANGED SEVERAL TIMES T/O THE DAY. DR GUPTA IS AWARE. THEY MAY DO AN IR CONDSULT TO HAVE IT CHANGED. NO ORDER AT THIS TIME. PT IN BED AT THE TIME OF SHIFT CHANGE, REQUESTING MORE PAIN MEDICATION AND STATING THE NAUSEA MEDS DID NOT WORK. NIGHT RN AWARE AND IS CALLING NIGHT HOSPITALIST.
[2024-01-27] MEDS ORDERED: Lactated Ringer's 1,000 ML IV SCH ×2 (20:41→23:31)
[2024-01-27] MEDS ORDERED: DiphenhydrAMINE HCl 50 MG/ML 1ML Vial IV PRN (21:36)
[2024-01-27 22:21] LABS: BASOPHILS ABSOLUTE AUTO 0.19 K/mm3 (0.00-0.23); BASOPHILS PERCENT AUTO 1 % (0-2); EOSINOPHILS ABSOLUTE AUTO 0.01 K/mm3 (0.00-0.68); EOSINOPHILS PERCENT AUTO 0 % (0-6); Hematocrit 42.1 % (37.0-53.0); Hemoglobin 13.5 g/dL (13.5-17.5); IMMATURE GRAN ABSOLUTE AUTO 1.17 K/mm3 (0.00-0.10); IMMATURE GRAN PERCENT AUTO 3 % (0-1); LYMPHOCYTES ABSOLUTE AUTO 1.74 K/mm3 (0.84-5.20); LYMPHOCYTES PERCENT AUTO 5 % (21-46); MONOCYTES ABSOLUTE AUTO 1.63 K/mm3 (0.16-1.47); MONOCYTES PERCENT AUTO 4 % (4-13); Mean Corpuscular HGB 27.9 pg (26.0-34.0); Mean Corpuscular HGB Conc 32.1 g/dL (31.5-36.5); Mean Corpuscular Volume 87 fL (80-100); Mean Platelet Volume 11.5 fL (9.1-12.4); NEUTROPHILS ABSOLUTE AUTO 32.84 K/mm3 (1.96-9.15); NEUTROPHILS PERCENT AUTO 88 % (41-73); Platelet Count 498 K/mm3 (150-400); RDW Coefficient Variation 15.3 % (11.7-14.2); RDW Standard Deviation 48.5 fL (35.1-46.3); Red Blood Cell Count 4.84 M/mm3 (4.30-5.90); White Blood Cell Count 37.58 K/mm3 (4.00-11.30)
[2024-01-27 23:07] LABS: Magnesium, Blood 1.5 mg/dL (1.6-2.4)
[2024-01-27 23:12] LABS: Albumin, Blood 2.4 g/dL (3.4-5.0); Albumin/Globulin Ratio 0.4 (0.8-1.8); Bilirubin, Total 0.3 mg/dL (0.1-1.0); Bun/Creatinine Ratio 35.2 (12.0-20.0); Calcium, Blood 9.8 mg/dL (8.5-10.1); Creatinine, Blood 1.62 mg/dL (0.60-1.20); Globulin, Blood 6.7 g/dL (2.2-4.0); Phosphorus, Blood 3.9 mg/dL (2.5-4.9); Potassium, Blood 3.9 mmol/L (3.5-5.5); Total Protein, Blood 9.1 g/dL (6.4-8.2)
[2024-01-27 23:14] VITALS: BP 126/85
[2024-01-28] VITALS (21 sets, daily range): BP systolic 43–129; BP diastolic 29–108
[2024-01-28] MEDS ORDERED: Piperacillin/Tazobactam Sod 4.5 GM in NS 100 ML IV SCH (01:01)
--- NOTE | 2024-01-28 01:20 | NUR ---
TRANSFER TO PCU PT ARRIVED TO PCU AT APPROXIMATELY 0110. PT WITH COMPLAINT OF PAIN OF ABDOMEN AND COCCYX, MEDICATED PER EMAR. PT WITH LABORED BREATHING, SPO2 >90% ON RA INITIALLY. BP STABLE, HR ST 120 S-130 S. NGT PLACED, DURING PLACEMENT PT VOMITED AND POSSIBLY ASPIRATED, SUCTIONED PT AND NOTIFIED PROVIDER. THERE WAS IMMEDIATE RETURN OF BROWN LIQUID FROM NGT. NGT ATTACHED TO LIS. XR COMPLETED TO CONFIRM PLACEMENT. CPN, ABX, AND LR RUNNING. SINCE NGT PLACEMENT PT CONTINUES TO COMPLAIN OF SOB, PLACED ON 8L HFNC WITH SPO2 >90%. PROVIDER NOTIFIED. PT REQUESTS FREQUENT REPOSITIONING AND STATES THAT HE FEELS ANXIOUS, MEDICATED PER EMAR. SUPRAPUBIC VILA IS LEAKY BUT DRAINING YELLOW URINE TO GRAVITY. PT IS NOW RESTING IN BED, BREATHING EVEN AND UNLABORED, CALL LIGHT IN REACH.
[2024-01-28 02:10] LABS: Hematocrit 38.7 % (37.0-53.0); Hemoglobin 12.5 g/dL (13.5-17.5); Mean Corpuscular HGB 28.1 pg (26.0-34.0); Mean Corpuscular HGB Conc 32.3 g/dL (31.5-36.5); Mean Corpuscular Volume 87 fL (80-100); Mean Platelet Volume 11.5 fL (9.1-12.4); Platelet Count 459 K/mm3 (150-400); RDW Coefficient Variation 15.4 % (11.7-14.2); RDW Standard Deviation 48.9 fL (35.1-46.3); Red Blood Cell Count 4.45 M/mm3 (4.30-5.90); White Blood Cell Count 41.36 K/mm3 (4.00-11.30)
[2024-01-28 02:20] LABS: Bun/Creatinine Ratio 36.2 (12.0-20.0); Calcium, Blood 8.7 mg/dL (8.5-10.1); Creatinine, Blood 1.6 mg/dL (0.60-1.20); Magnesium, Blood 1.7 mg/dL (1.6-2.4); Phosphorus, Blood 4.3 mg/dL (2.5-4.9); Potassium, Blood 4.8 mmol/L (3.5-5.5)
[2024-01-28 02:38] LABS: BAND PERCENT MAN 4 % (0-8); BASOPHILS ABSOLUTE MAN 0.41 K/mm3 (0.00-0.23); BASOPHILS PERCENT MAN 1 % (0-2); EOSINOPHILS PERCENT MAN 0 % (0-6); LYMPHOCYTES ABSOLUTE MAN 0.41 K/mm3 (0.84-5.20); LYMPHOCYTES PERCENT MAN 1 % (21-46); METAMYELOCYTE ABSOLUTE MAN 0.41 K/mm3 (0.00-0.00); METAMYELOCYTE PERCENT MAN 1 % (0-0); MONOCYTES ABSOLUTE MAN 1.65 K/mm3 (0.16-1.47); MONOCYTES PERCENT MAN 4 % (4-13); NEUTROPHILS ABSOLUTE MAN 38.05 K/mm3 (1.96-9.15); PLASMA CELL ABSOLUTE MAN 0.41 K/mm3 (0.00-0.00); PLASMA CELLS PERCENT MAN 1 % (0-0); SEG NEUTROPHILS PERCENT MAN 88 % (41-73); TOTAL CELLS COUNTED 100
[2024-01-28] MEDS ORDERED: NS 1,000 ML IV SCH (02:50)
[2024-01-28] MEDS ORDERED: NS 500 ML IV ONE ×2 (05:09→05:50)
--- NOTE | 2024-01-28 05:39 | NUR ---
UPDATE AT APPROXIMATELY 0435 PT'S O2 ALARMED WAS LOW 80'S ON 9L HFNC. THIS RN IMMEDIATELY PRESENTED TO PT ROOM. TITRATED O2 TO 15L HFNC, SPO2 THEN REMAINED HIGH 70'S, PT TACHYNEPIC WITH RR 30'S. RT AND ATTENDING PHYSICIAN NOTIFIED OF PT DECLINE, RT IMMEDIATELY TO BEDSIDE. PT CONTINUED TO BE A&O AND WAS SPEAKING IN FULL SENTENCES AT THAT TIME. PT THEN APPEARED TO BECOME UNRESPONSIVE WITH O2 DECREASING INTO 60'S, CODE BLUE CALLED. PT INTUBATED BY PROVIDER AND TRANSFERRED TO ICU 13. BEDSIDE REPORT GIVEN TO MIRIAM DOMINIQUE. ALL BELONGINGS SENT WITH PATIENT.
[2024-01-28] MEDS ORDERED: propofoL 100 ML IV SCH (05:40)
[2024-01-28] MEDS ORDERED: NACL IV SCH (05:45)
[2024-01-28] MEDS ORDERED: PHENYLEPHRINE HCL IV SCH (05:45)
--- NOTE | 2024-01-28 05:45 | NUR ---
CALL TO NEXT OF KIN FATHER CALLED AND UPDATED ON EVENTS THAT TRANSPIRED PRIOR TO TRANSFER TO ICU. HE HAS NO QUESTIONS AND CONCERNS AND WILL COME IN WHEN HE IS ABLE.
--- NOTE | 2024-01-28 07:13 | NUR ---
TRANSFER TO ICU: PT ARRIVED TO THE UNIT APPROX. 0500; BEDSIDE REPORT RECIEVED FROM BARBIE PINEDA. PT POST-INTUBATION, ARRIVED ON VENT WITH SETTINGS AC/PC WITH RATE-22, PI22, PEEP-10, AND FIO2 100%. PT SPO2 STABILIZED, 94<, BUT DURING SHIFT REPORT WITH ZAFAR PINEDA, SPO2 DROPPING DOWN TO 70'S. RT AT BEDSIDE WITH DR BONILLA AT THIS TIME. PT HAS BEEN UNRESPONSIVE, TWITCHING NOTED IN HEAD/NECK BUT DOES NOT RESPOND TO VERBAL/PAIN STIMULI AT THIS TIME. PT REMAINS UNSEDATED. PT HAS BEEN ST SINCE ARRIVAL WITH HR 110-120'S, MAP 65< WITH MAINE @ 360 MCG/MIN. NGT IN PLACE WITH APPROX. 3L OUTPUT; DARK GREEN IN COLOR. ABD ROUND, FIRM. OSTOMY IN PLACE, CHRONIC SUPRAPUBIC VILA IN PLACE THAT IS DRAINING TO GRAVITY AND CONSTANTLY LEAKING. RADIAL PULSES ARE FAINT, AND SKIN COOL TO TOUCH/PALE. BEDSIDE REPORT GIVEN TO ZAFAR PINEDA.
[2024-01-28] MEDS ORDERED: Lactated Ringer's 1,000 ML IV SCH (07:35)
[2024-01-28] MEDS ORDERED: Phenylephrine HCl in 0.9% NaCl 250 ML IV PRN (07:35)
[2024-01-28] MEDS ORDERED: Vasopressin 20 UNITS in NS 100 ML IV SCH (07:35)
[2024-01-28] MEDS ORDERED: Bumetanide 0.25 MG/ML 4ML ViaL IV STA (08:03)
[2024-01-28] MEDS ORDERED: Potassium Chloride 20 MEQ/15 ML UDC PO SCH (09:00)
--- NOTE | 2024-01-28 10:09 | NUR ---
"Spiritual care | TOD Called to room as pt. passed. Pastoral care is given to Pts. mom. Mom stepped out while staff repositions Pt. Will remain available to the family as they continue to gather at bedside."
--- NOTE | 2024-01-28 10:48 | NUR ---
"Spiritul Care | Pastoral Support and EOL Decisions Pt. had passed. When family returned to bedside apstoral care is given, scripture is read and EoL blessings are made for the Pt. and family. When the family asked about what is next, they requested this senior energy consultant to contact the pts. father in [place] by phone. Contacted Pts. father about EOL decisions and Father in turn contact family at bedside. The family has chosen [facility] for their home. The Pts. mother will let the ICU nurse know when they are soon leaving. The home can be contacted at that time. Pts. mother verbalized gratitude for the spiritual care support, and had exceptional gratitude for Dr. Hare for her care and compassion."
--- NOTE | 2024-01-28 13:13 | NUR ---
SUMMARY AT SHIFT CHANGE PT STARTED TO DESAT. RT TO BEDSIDE AND DR. BONILLA. DR. FORRESTER CALLED AND TO BEDSIDE QUICKLY. DR. BONILLA PLACED CENTRAL LINE FOR MORE ACCESS. PT WAS ON ON MAINE PRIOR TO SHIFT CHANGE, LEVO, VASO, AND EPI ALL ADDED WELL (SEE FLOWSHEET). LR BOLUS GIVEN, UNABLE TO KEEP BP STABLE. SPO2 DOWN IN THE 60'S AND UNABLE TO RECOVER DESPITE FIO2 100% AND PEEP UP TO 16. PRONED AT 0820. SATS COULD NOT RECOVER. CONTINUED TO GET BROWN SECRETIONS FROM ETT AND BROWN FLUID FROM OG TUBE TO LIS. ETCO2 CONTINUED TO DROP AND PT STARTED BECOMING BRADYCARDIC. MOTHER AND SISTERS AT BEDSIDE. AFTER DISCUSSIONS AT LENGTH WITH DR. BONILLA AND DR. FORRESTER PT'S MOTHER DID NOT WANT CPR PERFORMED. WITH ALL PRESSORS AT MAX AND MAX FIO2 PT PEACEFULLY WITH MOTHER AT BEDSIDE AT 0954.
[2024-01-28] MEDS ORDERED: Rocuronium Bromide 10 MG/ML 5ML Injection IV ONE (17:31)
[2024-01-28] MEDS ORDERED: EPINEPhrine HCl 0.1 MG/ML 10ML SYR IV ONE (17:31)
== END 2024-01-28 13:18 | DRG 329 ==
LOC: ER 18:06 → MEDS 18:07 → SURS 18:07 → MEDS 23:00 → ER 23:00 → MEDS 23:00 → SURS 01-10 00:33 → MEDS 01-11 17:52 → PCU 01-18 12:08 → SURS 01-19 11:55 → MEDS 01-27 00:03 → PCU 01-28 01:10 → ICUE 01-28 05:00
PROVIDERS: Emergency Medicine; Family Medicine; Internal Medicine; Registered Nurse; Student in an Organized Health Care Education/Training Program; Surgery; ADMIT Hospitalist
PROC: 0D9670Z Drainage of Stomach with Drainage Device, Via Natural or Artificial Opening (ICD-10-PCS; 2024-01-09)
PROC: 0DNW0ZZ Release Peritoneum, Open Approach (ICD-10-PCS; 2024-01-13)
PROC: 0DB80ZZ Excision of Small Intestine, Open Approach (ICD-10-PCS; principal; 2024-01-13 12:30)
PROC: 0WJG4ZZ Inspection of Peritoneal Cavity, Percutaneous Endoscopic Approach (ICD-10-PCS; 2024-01-13 12:30)
PROC: 3E0436Z Introduction of Nutritional Substance into Central Vein, Percutaneous Approach (ICD-10-PCS; 2024-01-18)
PROC: 02HV33Z Insertion of Infusion Device into Superior Vena Cava, Percutaneous Approach (ICD-10-PCS; 2024-01-18)
PROC: 0BH17EZ Insertion of Endotracheal Airway into Trachea, Via Natural or Artificial Opening (ICD-10-PCS; 2024-01-28)
PROC: 02HV33Z Insertion of Infusion Device into Superior Vena Cava, Percutaneous Approach (ICD-10-PCS; 2024-01-28)
PROC: 5A1935Z Respiratory Ventilation, Less than 24 Consecutive Hours (ICD-10-PCS; 2024-01-28)
PROC: 3E043XZ Introduction of Vasopressor into Central Vein, Percutaneous Approach (ICD-10-PCS; 2024-01-28)
PROC: 5A0935A Assistance with Respiratory Ventilation, Less than 24 Consecutive Hours, High Flow/Velocity Cannula (ICD-10-PCS; 2024-01-28)
DX: K56.50 Intestinal adhesions [bands], unspecified as to partial versus complete obstruction (principal); A41.9 Sepsis, unspecified organism; J80 Acute respiratory distress syndrome; R65.21 Severe sepsis with septic shock; J69.0 Pneumonitis due to inhalation of food and vomit; J18.9 Pneumonia, unspecified organism; E87.1 Hypo-osmolality and hyponatremia; G82.20 Paraplegia, unspecified; N39.0 Urinary tract infection, site not specified; N17.9 Acute kidney failure, unspecified; E87.0 Hyperosmolality and hypernatremia; E87.4 Mixed disorder of acid-base balance; K91.89 Other postprocedural complications and disorders of digestive system; T83.510A Infection and inflammatory reaction due to cystostomy catheter, initial encounter; Z66 Do not resuscitate; K21.9 Gastro-esophageal reflux disease without esophagitis; I10 Essential (primary) hypertension; E87.8 Other disorders of electrolyte and fluid balance, not elsewhere classified; E66.9 Obesity, unspecified; L89.152 Pressure ulcer of sacral region, stage 2; L89.892 Pressure ulcer of other site, stage 2; N31.9 Neuromuscular dysfunction of bladder, unspecified; E83.39 Other disorders of phosphorus metabolism; E87.6 Hypokalemia; Y73.2 Prosthetic and other implants, materials and accessory gastroenterology and urology devices associated with adverse incidents; Z53.31 Laparoscopic surgical procedure converted to open procedure; Z88.2 Allergy status to sulfonamides; Z88.8 Allergy status to other drugs, medicaments and biological substances; Z91.040 Latex allergy status; Z90.49 Acquired absence of other specified parts of digestive tract; Z93.3 Colostomy status; Z89.611 Acquired absence of right leg above knee; Z85.51 Personal history of malignant neoplasm of bladder; Z87.891 Personal history of nicotine dependence
CPT/HCPCS: 36415; 36556; 36569; 71045; 71260; 74019; 74176; 74177; 74250; 80048; 80053; 80069; 81001; 82570; 82803; 82947; 83605; 83690; 83735; 84100; 84145; 84300; 84478; 84484; 85025; 85027; 85520; 85610; 85730; 87040; 88307; 93005; 93010; 94002; 94762; 96361; 96365-59; 96375-59; 96376-59; 97110; 97163; 99285-25; A9270; C1751; J0171; J0360; J0612; J0696; J1100; J1170; J1200; J1644; J1885; J2250; J2270; J2371; J2405; J2543; J2704; J2765; J3010; J3411; J3475; J3480; J7030; J7040; J7050; J7060; J7120; J7121; J7131; Q9967